=== PATIENT | female | born 1955 | race Caucasian/White ===

== ENCOUNTER 2016-08-07 12:57 | Inpatient (IN) | payer OTHER ==
[~2016-08-07] VITALS: Ht 162.6 cm; Wt 60.0 kg
[2016-08-07 14:13] LABS: EOSINOPHIL (%) 1.4 % (0-5); EOSINOPHIL COUNT 0.2 K/uL (0-0.3); HEMATOCRIT 30.8 % (36.0-46.0); IMMATURE GRANULOCYTE (%) 0.5 % (0.0-0.7); IMMATURE GRANULOCYTE COUNT 0.7 K/uL; LYMPHOCYTE COUNT 1.4 K/uL (1.0-2.8); MCH 26.5 PG (29.0-34.0); MCHC 29.5 G/DL (30.0-36.0); MCV 89.5 FL (83-99); MEAN PLAT.VOLUME 8.7 uM^3 (9.5-12.4); MONOCYTE (%) 5.5 % (3-12); MONOCYTE COUNT 0.9 K/uL (0-0.8); NEUTROPHIL (%) 83.7 % (45-76); PLATELET COUNT 616 K/uL (156-360); RBC DIS.WIDTH-SD 51.4 % (39-53); RED BLOOD COUNT 3.44 M/uL (3.80-5.20); WHITE BLOOD COUNT 15.6 K/uL (4.1-10.2)
[2016-08-07 14:19] LABS: CHLORIDE 107 mEq/L (99-109); POTASSIUM 3.2 mEq/L (3.7-5.4); SODIUM 143 mEq/L (136-147)
[2016-08-07 14:21] LABS: GLUCOSE 96 mg/dL (70-99)
[2016-08-07 14:22] LABS: ANION GAP 10 MEQ/L (2-14)
[2016-08-07 14:25] LABS: GFR ESTIMATE (CALCULATED) > 59 mL/min/; UREA NITROGEN (BUN) 15 mg/dL (9-23)
[2016-08-07 15:46] LABS: TROP-I INTERPRETATION NEGATIVE; TROPONIN-I < 0.01 ng/mL (0.0-0.30)
[2016-08-07] MEDS ORDERED: TRILEPTAL300 MG PO (17:04)
[2016-08-07] MEDS ORDERED: OMEPRAZOLE40 M1 PO (17:04)
[2016-08-07] MEDS ORDERED: ROSUVASTATIN CAL5 MG PO (17:04)
[2016-08-07] MEDS ORDERED: PROAIR HFA8.5 GM IH (17:05)
[2016-08-07] MEDS ORDERED: WELLBUTRIN100 MG PO (17:05)
[2016-08-07] MEDS ORDERED: BUSPAR10 MG PO (17:05)
[2016-08-07] MEDS ORDERED: EXCEDRIN MIGRA1 EAC1 PO (17:06)
[2016-08-07] MEDS ORDERED: ZYRTEC10 M3 PO (17:06)
[2016-08-07] MEDS ORDERED: ALEVE220 MG PO (17:08)
[2016-08-07] MEDS ORDERED: KLONOPIN0.5 M1 PO (17:11)
[2016-08-07 18:35] VITALS: BP 121/63
[2016-08-07 19:22] VITALS: BP 111/58
[2016-08-07 23:37] VITALS: BP 95/52
[2016-08-08 03:48] VITALS: BP 111/68
[2016-08-08 06:55] LABS: HEMATOCRIT 27.6 % (36.0-46.0); MCHC 29.7 G/DL (30.0-36.0); MCV 90.8 FL (83-99); MEAN PLAT.VOLUME 9.2 uM^3 (9.5-12.4); PLATELET COUNT 514 K/uL (156-360); RBC DIS.WIDTH-CV 16.7 % (11.8-14.6); RBC DIS.WIDTH-SD 54.8 % (39-53); RED BLOOD COUNT 3.04 M/uL (3.80-5.20); WHITE BLOOD COUNT 14.7 K/uL (4.1-10.2)
[2016-08-08 07:20] LABS: ANION GAP 8 MEQ/L (2-14); CHLORIDE 107 MEQ/L (99-109); GFR ESTIMATE (CALCULATED) > 59 mL/min/; GLUCOSE 95 mg/dL (70-99); POTASSIUM 3.8 MEQ/L (3.7-5.4); SAMPLE HEMOLYSIS CHECK 0; SAMPLE ICTERIC CHECK 0; SAMPLE LIPEMIA CHECK 0; SODIUM 143 MEQ/L (136-147); UREA NITROGEN (BUN) 12 mg/dL (9-23)
[2016-08-08 08:09] VITALS: BP 133/67
[2016-08-08 11:45] VITALS: BP 108/67
[2016-08-08 15:21] VITALS: BP 107/77
[2016-08-08 19:25] VITALS: BP 118/67
[2016-08-08 21:51] LABS: ADD MIUA? YES; BILIRUBIN NEGATIVE; BLOOD SMALL; COLOR YELLOW ((YELLOW)); GLUCOSE (STRIP) NEGATIVE; KETONES NEGATIVE; LEUKOCYTES NEGATIVE; NITRITE NEGATIVE; PROTEIN (STRIP) NEGATIVE; SPECIFIC GRAVITY 1.017 (1.000-1.030)
[2016-08-08 22:06] LABS: BACTERIA NONE SEEN /HPF; EPITHELIAL CELLS NONE SEEN /HPF; HYALINE CASTS 0-5 /LPF; MUCUS TRACE /LPF; RED BLOOD CELLS 0-5 /HPF (0-5); UCUL ADDED? NO; WHITE BLOOD CELLS 0-5 /HPF (0-5)
[2016-08-08 22:36] VITALS: BP 104/57
[2016-08-09 03:31] VITALS: BP 112/58
[2016-08-09 06:02] LABS: HEMATOCRIT 27.7 % (36.0-46.0); MCH 26.9 PG (29.0-34.0); MCV 89.9 FL (83-99); MEAN PLAT.VOLUME 9.1 uM^3 (9.5-12.4); PLATELET COUNT 477 K/uL (156-360); RBC DIS.WIDTH-CV 16.7 % (11.8-14.6); RBC DIS.WIDTH-SD 54.9 % (39-53); RED BLOOD COUNT 3.08 M/uL (3.80-5.20); WHITE BLOOD COUNT 14.8 K/uL (4.1-10.2)
[2016-08-09 06:26] LABS: ANION GAP 9 MEQ/L (2-14); CHLORIDE 101 MEQ/L (99-109); GFR ESTIMATE (CALCULATED) > 59 mL/min/; GLUCOSE 103 mg/dL (70-99); POTASSIUM 3.4 MEQ/L (3.7-5.4); SAMPLE HEMOLYSIS CHECK 0; SAMPLE ICTERIC CHECK 0; SAMPLE LIPEMIA CHECK 0; SODIUM 137 MEQ/L (136-147); UREA NITROGEN (BUN) 12 mg/dL (9-23)
[2016-08-09 06:30] LABS: EOSINOPHIL (%) 0.7 % (0-5); EOSINOPHIL COUNT 0.1 K/uL (0-0.3); IMMATURE GRANULOCYTE (%) 0.6 % (0.0-0.7); IMMATURE GRANULOCYTE COUNT 0.1 K/uL; LYMPHOCYTE COUNT 0.7 K/uL (1.0-2.8); MONOCYTE (%) 5.7 % (3-12); MONOCYTE COUNT 0.9 K/uL (0-0.8)
[2016-08-09 07:25] VITALS: BP 115/68
[2016-08-09 08:08] LABS: INTER. NORMALIZED RATIO 1.2; PROTHROMBIN TIME 12.4 (9.2-11.2)
[2016-08-09 11:40] VITALS: BP 121/64
[2016-08-09 13:23] LABS: ALKALINE PHOSPHATASE 317 IU/L (3-129); DIRECT BILIRUBIN 0.2 mg/dL (0.0-0.3); TOTAL BILIRUBIN 0.6 MG/DL (0.0-1.0)
[2016-08-09 16:51] VITALS: BP 91/58
[2016-08-09 18:58] VITALS: BP 105/57
[2016-08-09 23:00] VITALS: BP 101/59
[2016-08-10 02:37] VITALS: BP 99/59
[2016-08-10 08:00] VITALS: BP 103/65
[2016-08-10 12:25] VITALS: BP 114/59
[2016-08-10 16:37] VITALS: BP 114/57
[2016-08-10 19:14] VITALS: BP 103/55
[2016-08-10 23:25] VITALS: BP 100/65
[2016-08-11 06:44] VITALS: BP 108/62
[2016-08-11 11:05] VITALS: BP 98/56
[2016-08-11 13:47] LABS: HEMATOCRIT 27.1 % (36.0-46.0); MCH 27.1 PG (29.0-34.0); MCHC 30.3 G/DL (30.0-36.0); MCV 89.4 FL (83-99); MEAN PLAT.VOLUME 9.4 uM^3 (9.5-12.4); PLATELET COUNT 479 K/uL (156-360); RBC DIS.WIDTH-CV 16.7 % (11.8-14.6); RBC DIS.WIDTH-SD 54.6 % (39-53); RED BLOOD COUNT 3.03 M/uL (3.80-5.20); WHITE BLOOD COUNT 16.3 K/uL (4.1-10.2)
[2016-08-11 13:56] LABS: ANION GAP 11 MEQ/L (2-14); CHLORIDE 102 MEQ/L (99-109); GFR ESTIMATE (CALCULATED) > 59 mL/min/; GLUCOSE 129 mg/dL (70-99); POTASSIUM 3.7 MEQ/L (3.7-5.4); SAMPLE HEMOLYSIS CHECK 0; SAMPLE ICTERIC CHECK 0; SAMPLE LIPEMIA CHECK 0; SODIUM 139 MEQ/L (136-147); UREA NITROGEN (BUN) 11 mg/dL (9-23)
[2016-08-11 13:59] LABS: EOSINOPHIL (%) 0.9 % (0-5); EOSINOPHIL COUNT 0.1 K/uL (0-0.3); IMMATURE GRANULOCYTE (%) 0.7 % (0.0-0.7); IMMATURE GRANULOCYTE COUNT 0.1 K/uL; LYMPHOCYTE COUNT 1.3 K/uL (1.0-2.8); MONOCYTE COUNT 0.8 K/uL (0-0.8); NEUTROPHIL (%) 85.1 % (45-76); NEUTROPHIL COUNT 13.9 K/uL (1.8-6.4)
[2016-08-11 14:54] LABS: HEMATOLOGY COMMENT 1 SMEAR COMPATIBLE; USER ID SS
[2016-08-11 15:44] VITALS: BP 113/66
[2016-08-11 19:05] VITALS: BP 103/59
[2016-08-11 23:55] VITALS: BP 90/52
[2016-08-12] VITALS (7 sets, daily range): BP systolic 88–110; BP diastolic 47–65
[2016-08-12] MEDS ORDERED: ADVAIR HFA120 INHALA IH (09:01)
[2016-08-12] MEDS ORDERED: BENZONATATE100 MG PO (09:01)
[2016-08-12] MEDS ORDERED: CEFDINIR300 MG PO (09:04)
[2016-08-12] MEDS ORDERED: SPIRIVA RESPIMAT4 GM IH (09:04)
[2016-08-12] MEDS ORDERED: PROVENTIL,2.5 MG/3 M IH (09:05)
[2016-08-12] MEDS ORDERED: ENDOCET 5-3251 EACH PO (09:05)
[2016-08-12 14:46] LABS: BASOPHIL COUNT 0.1 K/uL (0-0.1); EOSINOPHIL (%) 0.5 % (0-5); EOSINOPHIL COUNT 0.1 K/uL (0-0.3); HEMATOCRIT 26.8 % (36.0-46.0); IMMATURE GRANULOCYTE (%) 1.5 % (0.0-0.7); IMMATURE GRANULOCYTE COUNT 0.3 K/uL; INSTRUMENT ABS NEUTROPHIL CT 16.8 K/uL; MCH 25.9 PG (29.0-34.0); MCHC 29.1 G/DL (30.0-36.0); MEAN PLAT.VOLUME 9.2 uM^3 (9.5-12.4); MONOCYTE (%) 6.4 % (3-12); MONOCYTE COUNT 1.2 K/uL (0-0.8); NEUTROPHIL (%) 86.2 % (45-76); NEUTROPHIL COUNT 16.8 K/uL (1.8-6.4); PLATELET COUNT 534 K/uL (156-360); RBC DIS.WIDTH-CV 16.6 % (11.8-14.6); RBC DIS.WIDTH-SD 54.3 % (39-53); RED BLOOD COUNT 3.01 M/uL (3.80-5.20); WHITE BLOOD COUNT 19.5 K/uL (4.1-10.2)
[2016-08-12 15:07] LABS: ALKALINE PHOSPHATASE 325 IU/L (3-129); ANION GAP 10 MEQ/L (2-14); CHLORIDE 101 MEQ/L (99-109); GFR ESTIMATE (CALCULATED) > 59 mL/min/; GLUCOSE 108 mg/dL (70-99); POTASSIUM 3.7 MEQ/L (3.7-5.4); SAMPLE HEMOLYSIS CHECK 0; SAMPLE ICTERIC CHECK 0; SAMPLE LIPEMIA CHECK 0; SODIUM 136 MEQ/L (136-147); UREA NITROGEN (BUN) 15 mg/dL (9-23)
[2016-08-12 15:08] LABS: TOTAL BILIRUBIN 0.4 MG/DL (0.0-1.0)
[2016-08-13 03:13] VITALS: BP 107/67
[2016-08-13 06:48] VITALS: BP 64/52
[2016-08-13 10:15] VITALS: BP 120/52
[2016-08-13 15:44] VITALS: BP 110/76
[2016-08-13 19:23] VITALS: BP 110/65
[2016-08-13 23:29] VITALS: BP 106/71
[2016-08-14] VITALS (7 sets, daily range): BP systolic 92–126; BP diastolic 51–63
[2016-08-15 04:50] VITALS: BP 103/60
[2016-08-15 08:14] VITALS: BP 97/54
[2016-08-15 14:00] VITALS: BP 104/55
[2016-08-15 16:00] VITALS: BP 120/59
[2016-08-15 19:27] VITALS: BP 104/50
[2016-08-15 23:17] VITALS: BP 117/58
[2016-08-16 02:51] VITALS: BP 88/50
[2016-08-16 06:49] LABS: BASOPHIL COUNT 0.1 K/uL (0-0.1); EOSINOPHIL (%) 0.8 % (0-5); EOSINOPHIL COUNT 0.2 K/uL (0-0.3); HEMATOCRIT 25.6 % (36.0-46.0); IMMATURE GRANULOCYTE (%) 2.4 % (0.0-0.7); IMMATURE GRANULOCYTE COUNT 0.5 K/uL; INSTRUMENT ABS NEUTROPHIL CT 17.1 K/uL; LYMPHOCYTE COUNT 2.2 K/uL (1.0-2.8); MCH 26.5 PG (29.0-34.0); MCHC 29.3 G/DL (30.0-36.0); MCV 90.5 FL (83-99); MEAN PLAT.VOLUME 9.5 uM^3 (9.5-12.4); MONOCYTE (%) 5.4 % (3-12); MONOCYTE COUNT 1.2 K/uL (0-0.8); NEUTROPHIL (%) 80.7 % (45-76); NEUTROPHIL COUNT 17.1 K/uL (1.8-6.4); PLATELET COUNT 520 K/uL (156-360); RBC DIS.WIDTH-CV 16.7 % (11.8-14.6); RBC DIS.WIDTH-SD 54.5 % (39-53); RED BLOOD COUNT 2.83 M/uL (3.80-5.20); WHITE BLOOD COUNT 21.2 K/uL (4.1-10.2)
[2016-08-16 07:15] VITALS: BP 108/64
[2016-08-16 07:25] LABS: ANION GAP 10 MEQ/L (2-14); CHLORIDE 101 MEQ/L (99-109); GFR ESTIMATE (CALCULATED) > 59 mL/min/; GLUCOSE 71 mg/dL (70-99); SAMPLE HEMOLYSIS CHECK 0; SAMPLE ICTERIC CHECK 0; SAMPLE LIPEMIA CHECK 0; SODIUM 138 MEQ/L (136-147); UREA NITROGEN (BUN) 15 mg/dL (9-23)
[2016-08-16 10:15] VITALS: BP 108/60
[2016-08-16 15:15] VITALS: BP 89/51
[2016-08-16 18:58] VITALS: BP 108/68
[2016-08-16 23:12] VITALS: BP 110/58
[2016-08-17 03:22] VITALS: BP 135/68
[2016-08-17 08:30] VITALS: BP 96/61
[2016-08-17 16:17] VITALS: BP 107/60
[2016-08-17 23:34] VITALS: BP 108/54
[2016-08-18 03:14] VITALS: BP 109/55
[2016-08-18 07:31] VITALS: BP 110/59
[2016-08-18 11:55] VITALS: BP 110/56
[2016-08-18] MEDS ORDERED: CLARITIN,ALAVAR10 MG PO (15:17)
[2016-08-18] MEDS ORDERED: PANTOPRAZOLE SO40 MG PO (15:27)
== END 2016-08-18 13:27 | DRG 180 ==
LOC: EME 12:57 → 5EAST 16:31 → EDOF 16:31 → 5EAST 17:49
PROVIDERS: Emergency Medicine; Hospitalist; Internal Medicine; Physician Assistant; Radiology Diagnostic Radiology
PROC: 0BBJ3ZX Excision of Left Lower Lung Lobe, Percutaneous Approach, Diagnostic (ICD-10-PCS; principal; 2016-08-09)
DX: C34.32 Malignant neoplasm of lower lobe, left bronchus or lung (principal); J18.9 Pneumonia, unspecified organism; J44.1 Chronic obstructive pulmonary disease with (acute) exacerbation; F33.9 Major depressive disorder, recurrent, unspecified; R04.2 Hemoptysis; E87.6 Hypokalemia; R63.4 Abnormal weight loss; I11.9 Hypertensive heart disease without heart failure; D47.3 Essential (hemorrhagic) thrombocythemia; R59.1 Generalized enlarged lymph nodes; G89.3 Neoplasm related pain (acute) (chronic); I95.9 Hypotension, unspecified; R93.1 Abnormal findings on diagnostic imaging of heart and coronary circulation; E78.5 Hyperlipidemia, unspecified; I34.1 Nonrheumatic mitral (valve) prolapse; R13.10 Dysphagia, unspecified; G43.909 Migraine, unspecified, not intractable, without status migrainosus; D63.0 Anemia in neoplastic disease; F41.9 Anxiety disorder, unspecified; R00.0 Tachycardia, unspecified; Z60.2 Problems related to living alone; Z87.891 Personal history of nicotine dependence; Z80.0 Family history of malignant neoplasm of digestive organs; Z83.3 Family history of diabetes mellitus; Z81.1 Family history of alcohol abuse and dependence
CPT/HCPCS: 70553; 71020; 71250; 74177; 74230; 77012; 80048; 80053; 80076; 81003; 82272; 83605; 84439; 84443; 84481; 84484; 85025; 85027; 85610; 85730; 86376; 86800 90; 87040; 88305; 88341 TC; 88342 TC; 92611 GN; 93005; 93306; 93312; 93970; 94060; 94640; 94640 76; 94726; 94729; 94760; 94799; 97530 GO; 99202; 99281; 99284; G0008; J0696; J1650; J2250; J2405; J3010; J7040; J7050

== ENCOUNTER 2016-08-18 12:32 | Inpatient (IN) | payer OTHER ==
[~2016-08-18] VITALS: Ht 162.6 cm; Wt 56.1 kg
[~2016-08-18 12:32] MED LIST: ADVAIR HFA120 INHALA IH; ALEVE220 MG PO; BENZONATATE100 MG PO; BUSPAR10 MG PO; CEFDINIR300 MG PO; ENDOCET 5-3251 EACH PO; EXCEDRIN MIGRA1 EAC1 PO; KLONOPIN0.5 M1 PO; OMEPRAZOLE40 M1 PO; PROAIR HFA8.5 GM IH; PROVENTIL,2.5 MG/3 M IH; ROSUVASTATIN CAL5 MG PO; SPIRIVA RESPIMAT4 GM IH; TRILEPTAL300 MG PO; WELLBUTRIN100 MG PO; ZYRTEC10 M3 PO
[2016-08-18 14:00] VITALS: BP 109/56
[2016-08-18] MEDS ORDERED: CLARITIN,ALAVAR10 MG PO (15:17)
[2016-08-18] MEDS ORDERED: PANTOPRAZOLE SO40 MG PO (15:27)
[2016-08-18 23:39] VITALS: BP 100/49
[2016-08-19 05:26] VITALS: BP 104/60
[2016-08-19 05:41] LABS: HEMATOCRIT 24.3 % (36.0-46.0); MCH 26.5 PG (29.0-34.0); MCHC 29.2 G/DL (30.0-36.0); MCV 90.7 FL (83-99); MEAN PLAT.VOLUME 9.2 uM^3 (9.5-12.4); PLATELET COUNT 541 K/uL (156-360); RBC DIS.WIDTH-CV 17.1 % (11.8-14.6); RBC DIS.WIDTH-SD 54.9 % (39-53); RED BLOOD COUNT 2.68 M/uL (3.80-5.20); WHITE BLOOD COUNT 19.9 K/uL (4.1-10.2)
[2016-08-19 06:39] LABS: ALKALINE PHOSPHATASE 274 IU/L (3-129); ANION GAP 9 MEQ/L (2-14); CHLORIDE 99 MEQ/L (99-109); GFR ESTIMATE (CALCULATED) > 59 mL/min/; GLUCOSE 91 mg/dL (70-99); POTASSIUM 3.7 MEQ/L (3.7-5.4); SAMPLE HEMOLYSIS CHECK 0; SAMPLE ICTERIC CHECK 0; SAMPLE LIPEMIA CHECK 0; SODIUM 134 MEQ/L (136-147); TOTAL BILIRUBIN 0.4 MG/DL (0.0-1.0); UREA NITROGEN (BUN) 12 mg/dL (9-23)
[2016-08-19 15:19] VITALS: BP 118/59
[2016-08-20 05:38] VITALS: BP 106/56
[2016-08-20 08:45] LABS: BASOPHIL COUNT 0.1 K/uL (0-0.1); EOSINOPHIL (%) 0.7 % (0-5); EOSINOPHIL COUNT 0.1 K/uL (0-0.3); HEMATOCRIT 25.5 % (36.0-46.0); IMMATURE GRANULOCYTE (%) 1.4 % (0.0-0.7); IMMATURE GRANULOCYTE COUNT 0.3 K/uL; INSTRUMENT ABS NEUTROPHIL CT 16.2 K/uL; LYMPHOCYTE COUNT 1.7 K/uL (1.0-2.8); MCH 26.3 PG (29.0-34.0); MCV 90.7 FL (83-99); MEAN PLAT.VOLUME 9.2 uM^3 (9.5-12.4); MONOCYTE (%) 5.6 % (3-12); MONOCYTE COUNT 1.1 K/uL (0-0.8); NEUTROPHIL (%) 83.3 % (45-76); NEUTROPHIL COUNT 16.2 K/uL (1.8-6.4); PLATELET COUNT 543 K/uL (156-360); RBC DIS.WIDTH-CV 17.2 % (11.8-14.6); RBC DIS.WIDTH-SD 56.9 % (39-53); RED BLOOD COUNT 2.81 M/uL (3.80-5.20); WHITE BLOOD COUNT 19.4 K/uL (4.1-10.2)
[2016-08-20 15:28] VITALS: BP 102/61
[2016-08-20 20:57] LABS: ADD MIUA? NO; BILIRUBIN NEGATIVE; BLOOD NEGATIVE; COLOR YELLOW ((YELLOW)); GLUCOSE (STRIP) NEGATIVE; KETONES NEGATIVE; LEUKOCYTES NEGATIVE; NITRITE NEGATIVE; PROTEIN (STRIP) NEGATIVE; SPECIFIC GRAVITY 1.025 (1.000-1.030); UCUL ADDED? NO
[2016-08-21 04:49] VITALS: BP 103/56
[2016-08-21 16:01] VITALS: BP 100/55
[2016-08-22 05:13] VITALS: BP 102/57
[2016-08-22 05:26] LABS: BASOPHIL COUNT 0.1 K/uL (0-0.1); EOSINOPHIL (%) 0.7 % (0-5); EOSINOPHIL COUNT 0.1 K/uL (0-0.3); IMMATURE GRANULOCYTE (%) 1.3 % (0.0-0.7); IMMATURE GRANULOCYTE COUNT 0.2 K/uL; INSTRUMENT ABS NEUTROPHIL CT 15.7 K/uL; LYMPHOCYTE COUNT 1.7 K/uL (1.0-2.8); MCH 26.8 PG (29.0-34.0); MCHC 28.8 G/DL (30.0-36.0); MCV 92.9 FL (83-99); MEAN PLAT.VOLUME 9.2 uM^3 (9.5-12.4); MONOCYTE (%) 6.7 % (3-12); MONOCYTE COUNT 1.3 K/uL (0-0.8); NEUTROPHIL (%) 81.9 % (45-76); NEUTROPHIL COUNT 15.7 K/uL (1.8-6.4); PLATELET COUNT 558 K/uL (156-360); RBC DIS.WIDTH-CV 17.3 % (11.8-14.6); RBC DIS.WIDTH-SD 58.1 % (39-53); RED BLOOD COUNT 2.69 M/uL (3.80-5.20); WHITE BLOOD COUNT 19.2 K/uL (4.1-10.2)
[2016-08-22 15:13] VITALS: BP 98/54
[2016-08-23] VITALS (8 sets, daily range): BP systolic 91–108; BP diastolic 47–56
[2016-08-23 21:42] LABS: HEMATOCRIT 29.4 % (36.0-46.0); MCHC 30.3 G/DL (30.0-36.0); MCV 89.1 FL (83-99); PLATELET COUNT 519 K/uL (156-360); RBC DIS.WIDTH-CV 16.6 % (11.8-14.6); RBC DIS.WIDTH-SD 53.4 % (39-53); WHITE BLOOD COUNT 18.3 K/uL (4.1-10.2)
[2016-08-24 05:33] VITALS: BP 97/54
[2016-08-24 05:55] LABS: BASOPHIL COUNT 0.1 K/uL (0-0.1); EOSINOPHIL (%) 0.9 % (0-5); EOSINOPHIL COUNT 0.2 K/uL (0-0.3); HEMATOCRIT 29.7 % (36.0-46.0); IMMATURE GRANULOCYTE (%) 1.3 % (0.0-0.7); IMMATURE GRANULOCYTE COUNT 0.3 K/uL; INSTRUMENT ABS NEUTROPHIL CT 16.4 K/uL; LYMPHOCYTE COUNT 1.5 K/uL (1.0-2.8); MCH 26.9 PG (29.0-34.0); MCHC 30.3 G/DL (30.0-36.0); MCV 88.7 FL (83-99); MEAN PLAT.VOLUME 9.2 uM^3 (9.5-12.4); MONOCYTE (%) 5.7 % (3-12); MONOCYTE COUNT 1.1 K/uL (0-0.8); NEUTROPHIL (%) 83.8 % (45-76); NEUTROPHIL COUNT 16.4 K/uL (1.8-6.4); PLATELET COUNT 530 K/uL (156-360); RBC DIS.WIDTH-CV 16.8 % (11.8-14.6); RBC DIS.WIDTH-SD 53.9 % (39-53); RED BLOOD COUNT 3.35 M/uL (3.80-5.20); WHITE BLOOD COUNT 19.5 K/uL (4.1-10.2)
[2016-08-24 16:00] VITALS: BP 108/57
[2016-08-25 05:10] VITALS: BP 109/53
[2016-08-25 15:12] VITALS: BP 115/56
[2016-08-26 05:41] VITALS: BP 109/58
[2016-08-26 07:44] VITALS: BP 102/60
[2016-08-26 15:30] VITALS: BP 122/64
[2016-08-26 16:31] LABS: ADD MIUA? YES; BILIRUBIN NEGATIVE; BLOOD NEGATIVE; COLOR YELLOW ((YELLOW)); GLUCOSE (STRIP) NEGATIVE; KETONES NEGATIVE; LEUKOCYTES NEGATIVE; NITRITE NEGATIVE; PROTEIN (STRIP) NEGATIVE; SPECIFIC GRAVITY 1.025 (1.000-1.030)
[2016-08-26 17:17] LABS: RED BLOOD CELLS RARE /HPF (0-5)
[2016-08-26 17:18] LABS: AMORPHOUS URATES CRYSTALS 4+; BACTERIA RARE /HPF; CALCIUM OXALATE CRYSTALS 1+ /HPF; CASTS NONE SEEN /LPF; CRYSTALS PRESENT; EPITHELIAL CELLS 1+ /HPF; MUCUS NONE SEEN /LPF
[2016-08-27 06:12] VITALS: BP 103/54
[2016-08-27 07:30] VITALS: BP 100/66
[2016-08-27 15:19] VITALS: BP 102/59
[2016-08-28 05:39] VITALS: BP 112/62
[2016-08-28 15:17] VITALS: BP 96/59
[2016-08-29 05:30] VITALS: BP 120/57
[2016-08-29 15:33] VITALS: BP 107/62
[2016-08-30 05:58] LABS: BASOPHIL COUNT 0.1 K/uL (0-0.1); EOSINOPHIL (%) 0.5 % (0-5); EOSINOPHIL COUNT 0.1 K/uL (0-0.3); HEMATOCRIT 33.1 % (36.0-46.0); IMMATURE GRANULOCYTE (%) 0.9 % (0.0-0.7); IMMATURE GRANULOCYTE COUNT 0.2 K/uL; INSTRUMENT ABS NEUTROPHIL CT 14.5 K/uL; LYMPHOCYTE COUNT 1.7 K/uL (1.0-2.8); MCH 27.8 PG (29.0-34.0); MCHC 30.2 G/DL (30.0-36.0); MCV 91.9 FL (83-99); MEAN PLAT.VOLUME 9.1 uM^3 (9.5-12.4); MONOCYTE (%) 5.3 % (3-12); MONOCYTE COUNT 0.9 K/uL (0-0.8); NEUTROPHIL (%) 83.4 % (45-76); NEUTROPHIL COUNT 14.5 K/uL (1.8-6.4); PLATELET COUNT 536 K/uL (156-360); RBC DIS.WIDTH-CV 16.8 % (11.8-14.6); RBC DIS.WIDTH-SD 55.9 % (39-53); WHITE BLOOD COUNT 17.4 K/uL (4.1-10.2)
[2016-08-30 06:03] VITALS: BP 118/55
[2016-08-30 06:23] LABS: ALKALINE PHOSPHATASE 317 IU/L (3-129); ANION GAP 9 MEQ/L (2-14); CHLORIDE 103 MEQ/L (99-109); GFR ESTIMATE (CALCULATED) > 59 mL/min/; GLUCOSE 92 mg/dL (70-99); SAMPLE HEMOLYSIS CHECK 0; SAMPLE ICTERIC CHECK 0; SAMPLE LIPEMIA CHECK 0; SODIUM 141 MEQ/L (136-147); TOTAL BILIRUBIN 0.3 MG/DL (0.0-1.0); UREA NITROGEN (BUN) 11 mg/dL (9-23)
[2016-08-30 15:55] VITALS: BP 101/57
[2016-08-31 05:27] VITALS: BP 115/58
[2016-08-31 16:10] VITALS: BP 94/57
[2016-08-31] MEDS ORDERED: BUTALB-APAP-CA1 EACH PO (17:36)
[2016-08-31] MEDS ORDERED: LEVOFLOXACIN500 MG PO (17:36)
[2016-08-31] MEDS ORDERED: THERAGRAN1 TABLET PO (17:36)
[2016-08-31] MEDS ORDERED: SENNA PLUS TAB1 EACH PO (17:36)
[2016-08-31] MEDS ORDERED: TYLENOL REGULA325 MG PO (17:36)
[2016-08-31] MEDS ORDERED: PREDNISONE10 MG PO (17:36)
[2016-08-31] MEDS ORDERED: GUAIFENESI100 MG/5 M PO (17:36)
[2016-08-31] MEDS ORDERED: SPIRIVA RESPIMAT4 GM IH (17:36)
[2016-08-31] MEDS ORDERED: KLONOPIN0.5 M1 PO (17:36)
[2016-08-31] MEDS ORDERED: Vitamin B-12 PO (17:36)
[2016-08-31] MEDS ORDERED: FERROUS SULFAT325 MG PO (17:36)
[2016-08-31] MEDS ORDERED: PROAIR HFA8.5 GM IH (17:36)
[2016-08-31] MEDS ORDERED: GABAPENTIN300 MG PO (17:40)
[2016-09-01 05:28] VITALS: BP 94/57
== END 2016-09-01 14:00 | disposition home health service (06) | DRG 945 ==
LOC: 3WEST 12:32
PROVIDERS: Internal Medicine Hematology & Oncology; Internal Medicine Medical Oncology; Physical Medicine & Rehabilitation Pain Medicine; Psychiatry & Neurology Neurology
PROC: F07M0ZZ Range of Motion and Joint Mobility Treatment of Musculoskeletal System - Whole Body (ICD-10-PCS; principal; 2016-08-18)
PROC: 30233N1 Transfusion of Nonautologous Red Blood Cells into Peripheral Vein, Percutaneous Approach (ICD-10-PCS; 2016-08-23)
DX: R53.1 Weakness (principal); R13.10 Dysphagia, unspecified; R63.4 Abnormal weight loss; R11.2 Nausea with vomiting, unspecified; C34.32 Malignant neoplasm of lower lobe, left bronchus or lung; J44.0 Chronic obstructive pulmonary disease with (acute) lower respiratory infection; J18.8 Other pneumonia, unspecified organism; J44.1 Chronic obstructive pulmonary disease with (acute) exacerbation; D63.0 Anemia in neoplastic disease; R00.0 Tachycardia, unspecified; I10 Essential (primary) hypertension; E78.5 Hyperlipidemia, unspecified; G43.909 Migraine, unspecified, not intractable, without status migrainosus; F31.9 Bipolar disorder, unspecified; F41.9 Anxiety disorder, unspecified; E83.51 Hypocalcemia; E88.09 Other disorders of plasma-protein metabolism, not elsewhere classified; R74.8 Abnormal levels of other serum enzymes; K59.00 Constipation, unspecified; I34.1 Nonrheumatic mitral (valve) prolapse; R50.82 Postprocedural fever; D75.89 Other specified diseases of blood and blood-forming organs; R07.9 Chest pain, unspecified; G40.909 Epilepsy, unspecified, not intractable, without status epilepticus; Z87.891 Personal history of nicotine dependence; Z60.2 Problems related to living alone
CPT/HCPCS: 71010; 80053; 81003; 85025; 85027; 86850; 86900; 86901; 86920; 87070; 87086; 87205; 94640; 94640 76; 94799; 97110 GO; 97530 GP; J1650; J7512; P9016; Q0169

== ENCOUNTER 2016-09-09 10:56 | Inpatient (IN) | payer OTHER ==
[~2016-09-09] VITALS: Ht 162.6 cm; Wt 43.6 kg
[~2016-09-09 10:56] MED LIST changes: +BUTALB-APAP-CA1 EACH PO; +CLARITIN,ALAVAR10 MG PO; +FERROUS SULFAT325 MG PO; +GABAPENTIN300 MG PO; +GUAIFENESI100 MG/5 M PO; +LEVOFLOXACIN500 MG PO; +PANTOPRAZOLE SO40 MG PO; +PREDNISONE10 MG PO; +SENNA PLUS TAB1 EACH PO; +THERAGRAN1 TABLET PO; +TYLENOL REGULA325 MG PO; +Vitamin B-12 PO
[2016-09-09 11:53] LABS: HEMATOCRIT 38.6 % (36.0-46.0); MCHC 30.1 G/DL (30.0-36.0); PLATELET COUNT 456 K/uL (156-360); RBC DIS.WIDTH-CV 15.9 % (11.8-14.6); RBC DIS.WIDTH-SD 54.4 % (39-53); RED BLOOD COUNT 4.15 M/uL (3.80-5.20)
[2016-09-09 12:06] LABS: CHLORIDE 105 mEq/L (99-109); SODIUM 140 mEq/L (136-147)
[2016-09-09 12:07] LABS: GLUCOSE 104 mg/dL (70-99)
[2016-09-09 12:09] LABS: ANION GAP 11 MEQ/L (2-14)
[2016-09-09 12:13] LABS: GFR ESTIMATE (CALCULATED) > 59 mL/min/; UREA NITROGEN (BUN) 11 mg/dL (9-23)
[2016-09-09 12:15] LABS: TROP-I INTERPRETATION NEGATIVE; TROPONIN-I < 0.01 ng/mL (0.0-0.30)
[2016-09-09 15:34] LABS: BASOPHIL COUNT 0.1 K/uL (0-0.1); EOSINOPHIL (%) 0.4 % (0-5); EOSINOPHIL COUNT 0.1 K/uL (0-0.3); IMMATURE GRANULOCYTE (%) 1.3 % (0.0-0.7); IMMATURE GRANULOCYTE COUNT 0.3 K/uL; INSTRUMENT ABS NEUTROPHIL CT 17.6 K/uL; LYMPHOCYTE COUNT 1.2 K/uL (1.0-2.8); MONOCYTE (%) 4.9 % (3-12); NEUTROPHIL (%) 87.1 % (45-76); NEUTROPHIL COUNT 17.6 K/uL (1.8-6.4)
[2016-09-09] MEDS ORDERED: CENTRUM SILVER1 EAC3 PO (18:58)
[2016-09-10 00:01] VITALS: BP 117/68
[2016-09-10 04:00] VITALS: BP 92/50
[2016-09-10 07:16] VITALS: BP 106/74
[2016-09-10 07:35] LABS: HEMATOCRIT 32.4 % (36.0-46.0); MCH 27.9 PG (29.0-34.0); MCHC 30.6 G/DL (30.0-36.0); MCV 91.3 FL (83-99); MEAN PLAT.VOLUME 8.8 uM^3 (9.5-12.4); PLATELET COUNT 427 K/uL (156-360); RBC DIS.WIDTH-CV 15.5 % (11.8-14.6); RBC DIS.WIDTH-SD 52.5 % (39-53); RED BLOOD COUNT 3.55 M/uL (3.80-5.20); WHITE BLOOD COUNT 21.4 K/uL (4.1-10.2)
[2016-09-10 07:59] LABS: ANION GAP 10 MEQ/L (2-14); CHLORIDE 106 MEQ/L (99-109); GFR ESTIMATE (CALCULATED) > 59 mL/min/; GLUCOSE 94 mg/dL (70-99); POTASSIUM 3.7 MEQ/L (3.7-5.4); SAMPLE HEMOLYSIS CHECK 0; SAMPLE ICTERIC CHECK 0; SAMPLE LIPEMIA CHECK 0; SODIUM 143 MEQ/L (136-147); UREA NITROGEN (BUN) 16 mg/dL (9-23)
[2016-09-10 12:07] VITALS: BP 112/67
[2016-09-10] MEDS ORDERED: VITAMIN B-12500 MC5 PO (13:30)
[2016-09-10 16:25] VITALS: BP 110/74
[2016-09-10 20:00] VITALS: BP 94/58
[2016-09-11 00:02] VITALS: BP 91/53
[2016-09-11 04:42] VITALS: BP 111/63
[2016-09-11 07:02] LABS: HEMATOCRIT 32.6 % (36.0-46.0); MCH 27.2 PG (29.0-34.0); MCHC 29.8 G/DL (30.0-36.0); MCV 91.6 FL (83-99); MEAN PLAT.VOLUME 8.9 uM^3 (9.5-12.4); PLATELET COUNT 432 K/uL (156-360); RBC DIS.WIDTH-CV 15.9 % (11.8-14.6); RBC DIS.WIDTH-SD 53.1 % (39-53); RED BLOOD COUNT 3.56 M/uL (3.80-5.20); WHITE BLOOD COUNT 16.4 K/uL (4.1-10.2)
[2016-09-11 08:09] VITALS: BP 106/69
[2016-09-11 11:32] VITALS: BP 104/63
[2016-09-11 16:22] VITALS: BP 105/68
[2016-09-11 20:00] VITALS: BP 112/65
[2016-09-12 00:05] VITALS: BP 109/65
[2016-09-12 04:30] VITALS: BP 122/72
[2016-09-12 07:10] LABS: BASOPHIL COUNT 0.1 K/uL (0-0.1); EOSINOPHIL (%) 0.6 % (0-5); EOSINOPHIL COUNT 0.1 K/uL (0-0.3); HEMATOCRIT 36.9 % (36.0-46.0); IMMATURE GRANULOCYTE (%) 1.4 % (0.0-0.7); IMMATURE GRANULOCYTE COUNT 0.2 K/uL; INSTRUMENT ABS NEUTROPHIL CT 12.3 K/uL; LYMPHOCYTE COUNT 2.5 K/uL (1.0-2.8); MCH 27.6 PG (29.0-34.0); MCHC 29.8 G/DL (30.0-36.0); MCV 92.5 FL (83-99); MEAN PLAT.VOLUME 8.6 uM^3 (9.5-12.4); MONOCYTE (%) 6.5 % (3-12); MONOCYTE COUNT 1.1 K/uL (0-0.8); NEUTROPHIL (%) 75.9 % (45-76); NEUTROPHIL COUNT 12.3 K/uL (1.8-6.4); PLATELET COUNT 459 K/uL (156-360); RBC DIS.WIDTH-SD 54.9 % (39-53); RED BLOOD COUNT 3.99 M/uL (3.80-5.20); WHITE BLOOD COUNT 16.2 K/uL (4.1-10.2)
[2016-09-12 07:31] LABS: ANION GAP 7 MEQ/L (2-14); CHLORIDE 103 MEQ/L (99-109); GFR ESTIMATE (CALCULATED) > 59 mL/min/; GLUCOSE 83 mg/dL (70-99); POTASSIUM 3.9 MEQ/L (3.7-5.4); SAMPLE HEMOLYSIS CHECK 0; SAMPLE ICTERIC CHECK 0; SAMPLE LIPEMIA CHECK 0; SODIUM 142 MEQ/L (136-147); UREA NITROGEN (BUN) 18 mg/dL (9-23)
[2016-09-12 08:44] VITALS: BP 115/75
[2016-09-12 15:56] VITALS: BP 116/74
[2016-09-13 01:03] VITALS: BP 93/53
[2016-09-13 07:24] LABS: BASOPHIL COUNT 0.1 K/uL (0-0.1); EOSINOPHIL (%) 0.5 % (0-5); EOSINOPHIL COUNT 0.1 K/uL (0-0.3); HEMATOCRIT 35.2 % (36.0-46.0); IMMATURE GRANULOCYTE (%) 2.1 % (0.0-0.7); IMMATURE GRANULOCYTE COUNT 0.4 K/uL; INSTRUMENT ABS NEUTROPHIL CT 13.4 K/uL; LYMPHOCYTE COUNT 2.1 K/uL (1.0-2.8); MCH 27.2 PG (29.0-34.0); MCHC 29.3 G/DL (30.0-36.0); MCV 93.1 FL (83-99); MEAN PLAT.VOLUME 8.6 uM^3 (9.5-12.4); MONOCYTE (%) 5.9 % (3-12); NEUTROPHIL (%) 78.8 % (45-76); NEUTROPHIL COUNT 13.4 K/uL (1.8-6.4); PLATELET COUNT 454 K/uL (156-360); RBC DIS.WIDTH-CV 16.2 % (11.8-14.6); RBC DIS.WIDTH-SD 54.9 % (39-53); RED BLOOD COUNT 3.78 M/uL (3.80-5.20)
[2016-09-13 07:42] LABS: ANION GAP 9 MEQ/L (2-14); CHLORIDE 103 MEQ/L (99-109); GFR ESTIMATE (CALCULATED) > 59 mL/min/; GLUCOSE 75 mg/dL (70-99); POTASSIUM 4.4 MEQ/L (3.7-5.4); SAMPLE HEMOLYSIS CHECK 0; SAMPLE ICTERIC CHECK 0; SAMPLE LIPEMIA CHECK 0; SODIUM 144 MEQ/L (136-147); UREA NITROGEN (BUN) 18 mg/dL (9-23)
[2016-09-13 08:53] VITALS: BP 117/67
[2016-09-13 12:38] VITALS: BP 119/62
[2016-09-13 15:40] VITALS: BP 160/74
[2016-09-13 16:05] VITALS: BP 102/61
[2016-09-13 23:20] VITALS: BP 99/64
[2016-09-14 07:57] VITALS: BP 118/61
[2016-09-14 16:03] VITALS: BP 103/59
[2016-09-15 00:41] VITALS: BP 101/65
[2016-09-15 08:08] VITALS: BP 111/67
[2016-09-15 16:04] VITALS: BP 99/62
[2016-09-16 00:20] VITALS: BP 113/74
[2016-09-16 08:17] VITALS: BP 108/68
[2016-09-16 08:31] LABS: ANION GAP 9 MEQ/L (2-14); CHLORIDE 98 MEQ/L (99-109); GFR ESTIMATE (CALCULATED) > 59 mL/min/; GLUCOSE 83 mg/dL (70-99); POTASSIUM 4.4 MEQ/L (3.7-5.4); SAMPLE HEMOLYSIS CHECK 0; SAMPLE ICTERIC CHECK 0; SAMPLE LIPEMIA CHECK 0; UREA NITROGEN (BUN) 23 mg/dL (9-23)
[2016-09-16 08:32] LABS: SODIUM 135 MEQ/L (136-147)
[2016-09-16 08:35] LABS: HEMATOCRIT 36.4 % (36.0-46.0); MCH 27.9 PG (29.0-34.0); MCHC 30.2 G/DL (30.0-36.0); MCV 92.4 FL (83-99); MEAN PLAT.VOLUME 8.6 uM^3 (9.5-12.4); PLATELET COUNT 430 K/uL (156-360); RBC DIS.WIDTH-CV 16.8 % (11.8-14.6); RED BLOOD COUNT 3.94 M/uL (3.80-5.20)
[2016-09-16 08:44] LABS: WHITE BLOOD COUNT 23.5 K/uL (4.1-10.2)
[2016-09-16 09:17] LABS: ABS NEUTROPHIL COUNT 20.5; ANISOCYTOSIS 1+; ATYPICAL LYMPHOCYTE 0.4 %; BAND NEUTROPHILS 1.7 % (0-8.0); EOSINOPHIL ABS CT 0; INSTRUMENT ABS NEUTROPHIL CT 18.6 K/uL; LYMPHOCYTES 6.2 % (15.0-45.0); MACROCYTES 1+; METAMYELOCYTES 0.9 %; MYELOCYTES 3.1 %; PLAT.SUFFICIENCY INCREASED; POLYCHROMASIA 1+; SEG.NEUTROPHILS 85.5 % (46.0-76.0)
[2016-09-16 11:04] VITALS: BP 106/78
[2016-09-16 15:54] VITALS: BP 136/84
[2016-09-16 20:00] VITALS: BP 107/73
[2016-09-17] VITALS: BP 108/63
[2016-09-17 04:00] VITALS: BP 96/62
[2016-09-17 07:24] LABS: HEMATOCRIT 32.2 % (36.0-46.0); MCH 27.8 PG (29.0-34.0); MCHC 30.1 G/DL (30.0-36.0); MCV 92.3 FL (83-99); MEAN PLAT.VOLUME 8.9 uM^3 (9.5-12.4); PLATELET COUNT 395 K/uL (156-360); RBC DIS.WIDTH-CV 16.8 % (11.8-14.6); RBC DIS.WIDTH-SD 55.8 % (39-53); RED BLOOD COUNT 3.49 M/uL (3.80-5.20); WHITE BLOOD COUNT 20.5 K/uL (4.1-10.2)
[2016-09-17 07:48] VITALS: BP 102/62
[2016-09-17 07:58] LABS: ANION GAP 7 MEQ/L (2-14); CHLORIDE 100 MEQ/L (99-109); GFR ESTIMATE (CALCULATED) > 59 mL/min/; POTASSIUM 4.1 MEQ/L (3.7-5.4); SAMPLE HEMOLYSIS CHECK 0; SAMPLE ICTERIC CHECK 0; SAMPLE LIPEMIA CHECK 0; SODIUM 139 MEQ/L (136-147); UREA NITROGEN (BUN) 17 mg/dL (9-23)
[2016-09-17 07:59] LABS: GLUCOSE 108 mg/dL (70-99)
[2016-09-17 11:02] VITALS: BP 104/70
[2016-09-17 15:55] VITALS: BP 114/63
[2016-09-18] VITALS: BP 97/57
[2016-09-18 03:45] VITALS: BP 111/62
[2016-09-18 07:30] VITALS: BP 113/67
[2016-09-18 07:32] LABS: BASOPHIL COUNT 0.1 K/uL (0-0.1); EOSINOPHIL (%) 0.8 % (0-5); EOSINOPHIL COUNT 0.1 K/uL (0-0.3); HEMATOCRIT 35.7 % (36.0-46.0); IMMATURE GRANULOCYTE (%) 1.2 % (0.0-0.7); IMMATURE GRANULOCYTE COUNT 0.2 K/uL; INSTRUMENT ABS NEUTROPHIL CT 14.8 K/uL; LYMPHOCYTE COUNT 2.2 K/uL (1.0-2.8); MCH 27.7 PG (29.0-34.0); MCHC 29.7 G/DL (30.0-36.0); MCV 93.5 FL (83-99); MEAN PLAT.VOLUME 8.6 uM^3 (9.5-12.4); MONOCYTE (%) 6.2 % (3-12); MONOCYTE COUNT 1.2 K/uL (0-0.8); NEUTROPHIL (%) 79.6 % (45-76); NEUTROPHIL COUNT 14.8 K/uL (1.8-6.4); PLATELET COUNT 390 K/uL (156-360); RBC DIS.WIDTH-CV 17.2 % (11.8-14.6); RBC DIS.WIDTH-SD 58.1 % (39-53); RED BLOOD COUNT 3.82 M/uL (3.80-5.20); WHITE BLOOD COUNT 18.6 K/uL (4.1-10.2)
[2016-09-18 07:57] LABS: ANION GAP 8 MEQ/L (2-14); CHLORIDE 98 MEQ/L (99-109); GFR ESTIMATE (CALCULATED) > 59 mL/min/; GLUCOSE 82 mg/dL (70-99); POTASSIUM 4.3 MEQ/L (3.7-5.4); SAMPLE HEMOLYSIS CHECK 0; SAMPLE ICTERIC CHECK 0; SAMPLE LIPEMIA CHECK 0; SODIUM 138 MEQ/L (136-147); UREA NITROGEN (BUN) 17 mg/dL (9-23)
[2016-09-18 11:44] VITALS: BP 101/54
[2016-09-18 16:01] VITALS: BP 97/54
== END 2016-09-18 19:20 | disposition home or self-care (01) | DRG 181 ==
LOC: EME 10:56 → 5SOUTH 21:38 → EDOF 21:38 → 5SOUTH 23:34
PROVIDERS: Hospitalist; Internal Medicine; Nurse Practitioner Adult Health
DX: C34.32 Malignant neoplasm of lower lobe, left bronchus or lung (principal); J44.1 Chronic obstructive pulmonary disease with (acute) exacerbation; E88.09 Other disorders of plasma-protein metabolism, not elsewhere classified; I10 Essential (primary) hypertension; C34.31 Malignant neoplasm of lower lobe, right bronchus or lung; D63.0 Anemia in neoplastic disease; D72.829 Elevated white blood cell count, unspecified; T38.0X5A Adverse effect of glucocorticoids and synthetic analogues, initial encounter; E78.5 Hyperlipidemia, unspecified; R00.0 Tachycardia, unspecified; G89.29 Other chronic pain; F41.9 Anxiety disorder, unspecified; K21.9 Gastro-esophageal reflux disease without esophagitis; G43.909 Migraine, unspecified, not intractable, without status migrainosus; J98.11 Atelectasis; J98.4 Other disorders of lung; Z87.891 Personal history of nicotine dependence; F31.9 Bipolar disorder, unspecified; G89.3 Neoplasm related pain (acute) (chronic); R63.4 Abnormal weight loss; Z68.22 Body mass index [BMI] 22.0-22.9, adult
CPT/HCPCS: 71020; 71275; 80048; 84484; 85007; 85025; 85027; 86850; 86900; 86901; 87040; 88305; 93005; 93970; 94640; 94640 76; 94644; 99202; 99281; 99285; J0330; J0690; J1100; J1170; J1644; J1885; J2250; J2405; J2710; J2930; J3010; J7120; J7512

== ENCOUNTER → 2016-10-12 | Outpatient (CLI) | payer OTHER ==
[~2016-10-12] MED LIST changes: +CENTRUM SILVER1 EAC3 PO; +VITAMIN B-12500 MC5 PO
== END | disposition home or self-care (01) ==
LOC: NUC 12:34 → RAD 12:34 → NUC 13:00
DX: R91.8 Other nonspecific abnormal finding of lung field (principal); J90 Pleural effusion, not elsewhere classified
CPT/HCPCS: 71020; 78598; A9540; A9567

== ENCOUNTER 2016-10-18 09:45 | Inpatient (IN) | payer OTHER ==
[~2016-10-18] VITALS: Ht 162.6 cm; Wt 74.6 kg
[2016-10-18 16:26] LABS: MEAN PLAT.VOLUME 8.8 uM^3 (9.5-12.4); PLATELET COUNT 499 K/uL (156-360)
[2016-10-18 16:35] LABS: CHLORIDE 105 mEq/L (99-109); POTASSIUM 3.6 mEq/L (3.7-5.4); SODIUM 139 mEq/L (136-147)
[2016-10-18 16:37] LABS: GLUCOSE 126 mg/dL (70-99); HEMATOCRIT 27.4 % (36.0-46.0); MCH 29.6 PG (29.0-34.0); MCHC 29.9 G/DL (30.0-36.0); MCV 98.9 FL (83-99); RBC DIS.WIDTH-CV 17.3 % (11.8-14.6); RBC DIS.WIDTH-SD 62.3 % (39-53); RED BLOOD COUNT 2.77 M/uL (3.80-5.20)
[2016-10-18 16:38] LABS: ANION GAP 10 MEQ/L (2-14)
[2016-10-18 16:41] LABS: GFR ESTIMATE (CALCULATED) > 59 mL/min/; WHITE BLOOD COUNT 30.2 K/uL (4.1-10.2)
[2016-10-18 16:42] LABS: UREA NITROGEN (BUN) 10 mg/dL (9-23)
[2016-10-18 16:48] LABS: TROP-I INTERPRETATION NEGATIVE; TROPONIN-I < 0.01 ng/mL (0.0-0.30)
[2016-10-18] MEDS ORDERED: SPIRIVA1 INHALATI IH (21:00)
[2016-10-18] MEDS ORDERED: CLONAZEPAM0.5 MG PO (21:01)
[2016-10-18] MEDS ORDERED: NEURONTIN300 MG PO ×2 (21:02→21:05)
[2016-10-18 21:12] LABS: INTER. NORMALIZED RATIO 1.3; PROTHROMBIN TIME 12.9 (9.2-11.2); PTT 34.4 (25-32)
[2016-10-19] VITALS (9 sets, daily range): BP systolic 96–124; BP diastolic 55–83
[2016-10-19 16:26] LABS: ABS NEUTROPHIL COUNT 32.5; BAND NEUTROPHILS 7.7 % (0-8.0); EOSINOPHIL ABS CT 0; HEMATOCRIT 29.8 % (36.0-46.0); INSTRUMENT ABS NEUTROPHIL CT 29.6 K/uL; LYMPHOCYTES 2.6 % (15.0-45.0); MCH 29.8 PG (29.0-34.0); MCHC 32.6 G/DL (30.0-36.0); MEAN PLAT.VOLUME 9.4 uM^3 (9.5-12.4); METAMYELOCYTES 0.9 %; NRBC (%) 0.1 /100 WBC (0-0); RBC DIS.WIDTH-CV 16.9 % (11.8-14.6); RBC DIS.WIDTH-SD 54.4 % (39-53); RED BLOOD COUNT 3.25 M/uL (3.80-5.20); SEG.NEUTROPHILS 86.2 % (46.0-76.0)
[2016-10-19 16:27] LABS: MCV 91.7 FL (83-99); PLATELET COUNT 273 K/uL (156-360); WHITE BLOOD COUNT 34.6 K/uL (4.1-10.2)
[2016-10-19 19:55] LABS: BASE EXCESS -2.1 mEq/L (-3 to +3); BICARBONATE 23.2 mEq/L (22-26); METHEMOGLOBIN 1.8 % (0-1.5); PCO2 41 mm Hg (35-45); PO2 235 mm Hg (80-100); pH 7.36 (7.35-7.45)
[2016-10-19 19:56] LABS: COMMENTS - BLOOD GASES C+; DEVICE VENT; FI02 50 %; MECHANICAL RATE 16 resp/min; MODE A/C; PEEP 5 CM/H20; SITE RR ALINE; TIDAL VOLUME 350 ML; TOTAL RESP RATE 16 resp/min
[2016-10-20] VITALS (13 sets, daily range): BP systolic 75–120; BP diastolic 53–83
[2016-10-20 01:29] LABS: INTER. NORMALIZED RATIO 1.2; PROTHROMBIN TIME 12.2 (9.2-11.2); PTT 27.3 (25-32)
[2016-10-20 01:32] LABS: CHLORIDE 114 mEq/L (99-109); HEMATOCRIT 31.6 % (36.0-46.0); MCH 29.1 PG (29.0-34.0); MCHC 33.9 G/DL (30.0-36.0); MCV 85.9 FL (83-99); MEAN PLAT.VOLUME 10.1 uM^3 (9.5-12.4); NRBC (%) 0.3 /100 WBC (0-0); PLATELET COUNT 279 K/uL (156-360); RBC DIS.WIDTH-CV 16.7 % (11.8-14.6); RBC DIS.WIDTH-SD 49.1 % (39-53); RED BLOOD COUNT 3.68 M/uL (3.80-5.20); WHITE BLOOD COUNT 23.3 K/uL (4.1-10.2)
[2016-10-20 01:33] LABS: POTASSIUM 4.3 mEq/L (3.7-5.4); SODIUM 143 mEq/L (136-147)
[2016-10-20 01:34] LABS: GLUCOSE 134 mg/dL (70-99)
[2016-10-20 01:36] LABS: ANION GAP 9 MEQ/L (2-14)
[2016-10-20 01:38] LABS: GFR ESTIMATE (CALCULATED) > 59 mL/min/
[2016-10-20 01:39] LABS: UREA NITROGEN (BUN) 9 mg/dL (9-23)
[2016-10-20 01:53] LABS: METH RESISTANT S AUREUS PCR NEGATIVE (NEGATIVE)
[2016-10-20 01:57] LABS: PROBE CHECK PASS; SPECIMEN PROCESSING CONTROL PASS
[2016-10-20 07:41] LABS: ANION GAP 10 MEQ/L (2-14); CHLORIDE 113 MEQ/L (99-109); GFR ESTIMATE (CALCULATED) > 59 mL/min/; GLUCOSE 115 mg/dL (70-99); POTASSIUM 4.2 MEQ/L (3.7-5.4); SAMPLE HEMOLYSIS CHECK 0; SAMPLE ICTERIC CHECK 0; SAMPLE LIPEMIA CHECK 0; SODIUM 144 MEQ/L (136-147); UREA NITROGEN (BUN) 9 mg/dL (9-23)
[2016-10-20 07:47] LABS: HEMATOCRIT 33.5 % (36.0-46.0); MCH 29.7 PG (29.0-34.0); MCV 87.2 FL (83-99); MEAN PLAT.VOLUME 10.3 uM^3 (9.5-12.4); NRBC (%) 0.5 /100 WBC (0-0); PLATELET COUNT 312 K/uL (156-360); RBC DIS.WIDTH-CV 17.5 % (11.8-14.6); RBC DIS.WIDTH-SD 51.5 % (39-53); RED BLOOD COUNT 3.84 M/uL (3.80-5.20)
[2016-10-20 07:51] LABS: WHITE BLOOD COUNT 15.7 K/uL (4.1-10.2)
[2016-10-20 10:03] LABS: BASE EXCESS -1.3 mEq/L (-3 to +3); BICARBONATE 22.6 mEq/L (22-26); CARBOXY HGB 2.9 % (0-5); COMMENTS - BLOOD GASES NEG A+C+; DEVICE VENT; FI02 30 %; METHEMOGLOBIN 1.5 % (0-1.5); MODE TC; PCO2 34 mm Hg (35-45); PEEP 5 CM/H20; PO2 110 mm Hg (80-100); SITE LR; TOTAL RESP RATE 19 resp/min; pH 7.43 (7.35-7.45)
[2016-10-21] VITALS (12 sets, daily range): BP systolic 83–100; BP diastolic 48–66
[2016-10-21 06:18] LABS: HEMATOCRIT 24.4 % (36.0-46.0); MCH 29.4 PG (29.0-34.0); MCHC 32.4 G/DL (30.0-36.0); MCV 90.7 FL (83-99); MEAN PLAT.VOLUME 9.4 uM^3 (9.5-12.4); NRBC (%) 0.4 /100 WBC (0-0); PLATELET COUNT 297 K/uL (156-360); RBC DIS.WIDTH-CV 18.2 % (11.8-14.6); RBC DIS.WIDTH-SD 57.1 % (39-53); WHITE BLOOD COUNT 11.2 K/uL (4.1-10.2)
[2016-10-21 06:25] LABS: RED BLOOD COUNT 2.69 M/uL (3.80-5.20)
[2016-10-21 06:35] LABS: ANION GAP 6 MEQ/L (2-14); CHLORIDE 110 MEQ/L (99-109); GFR ESTIMATE (CALCULATED) > 59 mL/min/; GLUCOSE 95 mg/dL (70-99); POTASSIUM 3.6 MEQ/L (3.7-5.4); SAMPLE HEMOLYSIS CHECK 0; SAMPLE ICTERIC CHECK 0; SAMPLE LIPEMIA CHECK 0; SODIUM 143 MEQ/L (136-147); UREA NITROGEN (BUN) 6 mg/dL (9-23)
[2016-10-21 09:19] LABS: MCV 88.2 FL (83-99)
[2016-10-21 12:21] LABS: MAGNESIUM 1.8 mg/dl (1.3-2.7)
[2016-10-22] VITALS (13 sets, daily range): BP systolic 81–104; BP diastolic 53–69
[2016-10-22 08:01] LABS: HEMATOCRIT 24.8 % (36.0-46.0); MCH 29.4 PG (29.0-34.0); MCHC 31.9 G/DL (30.0-36.0); NRBC (%) 0.4 /100 WBC (0-0); RBC DIS.WIDTH-CV 17.9 % (11.8-14.6); RBC DIS.WIDTH-SD 57.7 % (39-53); RED BLOOD COUNT 2.69 M/uL (3.80-5.20); WHITE BLOOD COUNT 8.9 K/uL (4.1-10.2)
[2016-10-22 08:02] LABS: MCV 92.2 FL (83-99)
[2016-10-22 08:19] LABS: ANION GAP 8 MEQ/L (2-14); CHLORIDE 109 MEQ/L (99-109); GFR ESTIMATE (CALCULATED) > 59 mL/min/; GLUCOSE 88 mg/dL (70-99); PLAT.SUFFICIENCY ADEQUATE; PLATELET CLUMPS PRESENT - PLATELET COUNT APPEARS ADQ.; PLATELET COUNT UNABLE TO REPORT K/uL (156-360); SAMPLE HEMOLYSIS CHECK 0; SAMPLE ICTERIC CHECK 0; SAMPLE LIPEMIA CHECK 0; SODIUM 142 MEQ/L (136-147); UREA NITROGEN (BUN) 4 mg/dL (9-23)
[2016-10-23] VITALS (17 sets, daily range): BP systolic 84–113; BP diastolic 51–75
[2016-10-23 06:30] LABS: HEMATOCRIT 26.9 % (36.0-46.0); MCH 29.8 PG (29.0-34.0); MCHC 31.6 G/DL (30.0-36.0); MCV 94.4 FL (83-99); MEAN PLAT.VOLUME 9.5 uM^3 (9.5-12.4); NRBC (%) 0.4 /100 WBC (0-0); PLATELET COUNT 363 K/uL (156-360); RBC DIS.WIDTH-CV 18.9 % (11.8-14.6); RBC DIS.WIDTH-SD 58.4 % (39-53); RED BLOOD COUNT 2.85 M/uL (3.80-5.20); WHITE BLOOD COUNT 10.1 K/uL (4.1-10.2)
[2016-10-23 06:54] LABS: ANION GAP 6 MEQ/L (2-14); CHLORIDE 107 MEQ/L (99-109); GFR ESTIMATE (CALCULATED) > 59 mL/min/; GLUCOSE 82 mg/dL (70-99); POTASSIUM 4.2 MEQ/L (3.7-5.4); PREALBUMIN 7.5 mg/dL (10-40); SAMPLE HEMOLYSIS CHECK 0; SAMPLE ICTERIC CHECK 0; SAMPLE LIPEMIA CHECK 0; SODIUM 141 MEQ/L (136-147); UREA NITROGEN (BUN) 5 mg/dL (9-23)
[2016-10-24] VITALS (15 sets, daily range): BP systolic 81–102; BP diastolic 51–70
[2016-10-25] VITALS (16 sets, daily range): BP systolic 79–110; BP diastolic 46–65
[2016-10-26 02:56] VITALS: BP 115/71
[2016-10-26 07:34] VITALS: BP 106/57
[2016-10-26 07:57] LABS: ANION GAP 9 MEQ/L (2-14); CHLORIDE 106 MEQ/L (99-109); GFR ESTIMATE (CALCULATED) > 59 mL/min/; GLUCOSE 80 mg/dL (70-99); POTASSIUM 3.9 MEQ/L (3.7-5.4); SAMPLE HEMOLYSIS CHECK 0; SAMPLE ICTERIC CHECK 0; SAMPLE LIPEMIA CHECK 0; SODIUM 144 MEQ/L (136-147); UREA NITROGEN (BUN) 17 mg/dL (9-23)
[2016-10-26 08:15] LABS: HEMATOCRIT 27.8 % (36.0-46.0); MCH 29.9 PG (29.0-34.0); MCHC 30.6 G/DL (30.0-36.0); MCV 97.9 FL (83-99); MEAN PLAT.VOLUME 9.4 uM^3 (9.5-12.4); RBC DIS.WIDTH-CV 18.9 % (11.8-14.6); RBC DIS.WIDTH-SD 64.3 % (39-53); RED BLOOD COUNT 2.84 M/uL (3.80-5.20)
[2016-10-26 08:24] LABS: PLATELET COUNT 505 K/uL (156-360); WHITE BLOOD COUNT 6.2 K/uL (4.1-10.2)
[2016-10-26 11:26] VITALS: BP 103/55
[2016-10-26 16:24] VITALS: BP 107/55
[2016-10-26 20:03] VITALS: BP 112/67
[2016-10-27 05:00] VITALS: BP 104/70
[2016-10-27 08:00] VITALS: BP 117/76
[2016-10-27 13:42] VITALS: BP 99/57
[2016-10-27 17:14] VITALS: BP 101/68
[2016-10-27 19:51] VITALS: BP 98/61
[2016-10-27 23:27] VITALS: BP 101/60
[2016-10-28 02:26] VITALS: BP 107/53
[2016-10-28 07:56] VITALS: BP 107/62
[2016-10-28 12:00] VITALS: BP 98/52
[2016-10-28 16:00] VITALS: BP 98/56
[2016-10-28 19:53] VITALS: BP 107/54
[2016-10-28 23:08] VITALS: BP 100/58
[2016-10-29 03:16] VITALS: BP 110/68
[2016-10-29 07:15] VITALS: BP 95/60
[2016-10-29 12:05] VITALS: BP 92/50
[2016-10-29 16:30] VITALS: BP 133/59
[2016-10-29 19:30] VITALS: BP 108/55
[2016-10-29 22:45] VITALS: BP 92/56
[2016-10-30] VITALS (7 sets, daily range): BP systolic 78–93; BP diastolic 53–60
[2016-10-30 08:39] LABS: ANION GAP 9 MEQ/L (2-14); CHLORIDE 102 MEQ/L (99-109); GFR ESTIMATE (CALCULATED) > 59 mL/min/; GLUCOSE 101 mg/dL (70-99); POTASSIUM 4.3 MEQ/L (3.7-5.4); SAMPLE HEMOLYSIS CHECK 0; SAMPLE ICTERIC CHECK 0; SAMPLE LIPEMIA CHECK 0; SODIUM 138 MEQ/L (136-147); UREA NITROGEN (BUN) 13 mg/dL (9-23)
[2016-10-30 08:54] LABS: BASOPHIL COUNT 0.1 K/uL (0-0.1); EOSINOPHIL (%) 1.4 % (0-5); EOSINOPHIL COUNT 0.1 K/uL (0-0.3); HEMATOCRIT 32.1 % (36.0-46.0); IMMATURE GRANULOCYTE (%) 1.1 % (0.0-0.7); IMMATURE GRANULOCYTE COUNT 0.1 K/uL; INSTRUMENT ABS NEUTROPHIL CT 5.9 K/uL; LYMPHOCYTE COUNT 1.7 K/uL (1.0-2.8); MCHC 30.5 G/DL (30.0-36.0); MCV 98.2 FL (83-99); MONOCYTE (%) 10.8 % (3-12); NEUTROPHIL COUNT 5.9 K/uL (1.8-6.4); NRBC (%) 0.2 /100 WBC (0-0); PLATELET COUNT 503 K/uL (156-360); RBC DIS.WIDTH-CV 18.1 % (11.8-14.6); RBC DIS.WIDTH-SD 64.2 % (39-53); RED BLOOD COUNT 3.27 M/uL (3.80-5.20); WHITE BLOOD COUNT 8.8 K/uL (4.1-10.2)
[2016-10-31 01:12] VITALS: BP 86/56
[2016-10-31 05:48] VITALS: BP 100/62
[2016-10-31 08:00] VITALS: BP 92/52
[2016-10-31] MEDS ORDERED: DOCUSATE SODIU100 MG PO (10:33)
[2016-10-31] MEDS ORDERED: DIGOXIN125 MCG PO (10:33)
[2016-10-31] MEDS ORDERED: TRAMADOL HCL50 MG PO (10:33)
[2016-10-31] MEDS ORDERED: CHROMAGEN,1 CAPSULE PO (10:33)
[2016-10-31] MEDS ORDERED: LOPRESSOR25 MG PO (10:46)
[2016-10-31 12:24] VITALS: BP 98/50
== END 2016-10-31 17:10 | disposition home health service (06) | DRG 164 ==
LOC: NUC 09:45 → EME 09:45 → NUC 09:45 → EDOF 20:30 → 2EAST 20:30 → 4WEST 20:30 → 2EAST 22:00 → 4WEST 10-19 17:23 → 4EAST 10-25 20:39
PROVIDERS: Emergency Medicine; Internal Medicine Nephrology; Psychiatry & Neurology Neurology; Surgery; Thoracic Surgery (Cardiothoracic Vascular Surgery)
PROC: 5A1945Z Respiratory Ventilation, 24-96 Consecutive Hours (ICD-10-PCS; principal; 2016-10-18)
PROC: 07B70ZX Excision of Thorax Lymphatic, Open Approach, Diagnostic (ICD-10-PCS; principal; 2016-10-18)
PROC: [UNRECOGNIZED PROCEDURE] (principal; 2016-10-18)
PROC: 0BH17EZ Insertion of Endotracheal Airway into Trachea, Via Natural or Artificial Opening (ICD-10-PCS; principal; 2016-10-18)
PROC: [UNRECOGNIZED PROCEDURE] (principal; 2016-10-18)
PROC: 02Q Heart and Great Vessels, Repair (ICD-10-PCS; principal; 2016-10-18)
PROC: 30263N1 (ICD-10-PCS; principal; 2016-10-18)
PROC: 0BTL0ZZ Resection of Left Lung, Open Approach (ICD-10-PCS; principal; 2016-10-18)
DX: C34.92 Malignant neoplasm of unspecified part of left bronchus or lung (principal); R63.4 Abnormal weight loss; I95.9 Hypotension, unspecified; J44.9 Chronic obstructive pulmonary disease, unspecified; F32.9 Major depressive disorder, single episode, unspecified; E04.1 Nontoxic single thyroid nodule; I82.612 Acute embolism and thrombosis of superficial veins of left upper extremity; I80.8 Phlebitis and thrombophlebitis of other sites; J94.8 Other specified pleural conditions; G89.3 Neoplasm related pain (acute) (chronic); R60.0 Localized edema; R09.02 Hypoxemia; R00.0 Tachycardia, unspecified; R07.9 Chest pain, unspecified; F41.9 Anxiety disorder, unspecified; I05.9 Rheumatic mitral valve disease, unspecified; I11.0 Hypertensive heart disease with heart failure; E78.5 Hyperlipidemia, unspecified; I48.92 Unspecified atrial flutter; Z72.0 Tobacco use; Z99.81 Dependence on supplemental oxygen; K21.9 Gastro-esophageal reflux disease without esophagitis; I34.1 Nonrheumatic mitral (valve) prolapse; Z88.6 Allergy status to analgesic agent; R57.9 Shock, unspecified; J98.11 Atelectasis; J90 Pleural effusion, not elsewhere classified; E87.6 Hypokalemia; Y83.6 Removal of other organ (partial) (total) as the cause of abnormal reaction of the patient, or of later complication, without mention of misadventure at the time of the procedure; Y92.234 Operating room of hospital as the place of occurrence of the external cause; I97.620 Postprocedural hemorrhage of a circulatory system organ or structure following other procedure; J95.71 Accidental puncture and laceration of a respiratory system organ or structure during a respiratory system procedure; Y83.8 Other surgical procedures as the cause of abnormal reaction of the patient, or of later complication, without mention of misadventure at the time of the procedure
CPT/HCPCS: 36600; 36620; 71010; 71275; 78452; 80048; 80048 91; 80162; 82040; 82330; 82533 91; 82803; 82948; 83605; 83735; 84100; 84132 91; 84134; 84443; 84484; 85014; 85018; 85025; 85027; 85610; 85730; 86900; 86901; 86920; 87040; 87070; 87205; 87641; 88305; 88309; 88341 TC; 88342 TC; 93005; 93017; 93970; 93971; 94002; 94003; 94010; 94640; 94640 76; 94667; 94668; 94799; 97530 GO; 97530 GP; 99202; 99281; 99285; A9500; C1768; J0610; J0690; J1160; J1644; J1885; J2060; J2370; J2704; J2785; J3010; J3420; J3480; J7030; J7040; J7050; J7120; P9016; P9017; P9035; P9040; P9045; S0028

== ENCOUNTER 2017-01-11 12:32 | Inpatient (IN) | payer OTHER ==
[~2017-01-11] VITALS: Ht 162.6 cm; Wt 59.5 kg
[~2017-01-11 12:32] MED LIST changes: +CHROMAGEN,1 CAPSULE PO; +CLONAZEPAM0.5 MG PO; +COLACE100 MG PO; +DIGOXIN125 MCG PO; +DOCUSATE SODIU100 MG PO; +LOPRESSOR25 MG PO; +NEURONTIN300 MG PO; +SPIRIVA1 INHALATI IH; +TRAMADOL HCL50 MG PO; +WELLBUTRIN SR100 MG PO; -WELLBUTRIN100 MG PO
[2017-01-11 14:12] LABS: BASOPHIL COUNT 0.1 K/uL (0-0.1); EOSINOPHIL (%) 0.4 % (0-5); HEMATOCRIT 31.1 % (36.0-46.0); IMMATURE GRANULOCYTE COUNT 0.4 K/uL; INSTRUMENT ABS NEUTROPHIL CT 7.8 K/uL; LYMPHOCYTE COUNT 0.5 K/uL (1.0-2.8); MCH 27.7 PG (29.0-34.0); MCHC 30.9 G/DL (30.0-36.0); MCV 89.6 FL (83-99); MEAN PLAT.VOLUME 9.2 uM^3 (9.5-12.4); MONOCYTE (%) 4.7 % (3-12); MONOCYTE COUNT 0.4 K/uL (0-0.8); NEUTROPHIL (%) 84.1 % (45-76); NEUTROPHIL COUNT 7.8 K/uL (1.8-6.4); NRBC (%) 0.2 /100 WBC (0-0); PLATELET COUNT 328 K/uL (156-360); RBC DIS.WIDTH-CV 17.5 % (11.8-14.6); RBC DIS.WIDTH-SD 52.8 % (39-53); RED BLOOD COUNT 3.47 M/uL (3.80-5.20); WHITE BLOOD COUNT 9.3 K/uL (4.1-10.2)
[2017-01-11 14:23] LABS: CHLORIDE 103 mEq/L (99-109); POTASSIUM 3.9 mEq/L (3.7-5.4); SODIUM 140 mEq/L (136-147)
[2017-01-11 14:25] LABS: GLUCOSE 87 mg/dL (70-99)
[2017-01-11 14:26] LABS: ANION GAP 10 MEQ/L (2-14)
[2017-01-11 14:27] LABS: TOTAL BILIRUBIN 0.8 mg/dL (0.0-1.0)
[2017-01-11 14:29] LABS: ALKALINE PHOSPHATASE 323 IU/L (3-129); GFR ESTIMATE (CALCULATED) > 59 mL/min/
[2017-01-11 14:30] LABS: UREA NITROGEN (BUN) 18 mg/dL (9-23)
[2017-01-11] MEDS ORDERED: TRILEPTAL300 MG PO (16:44)
[2017-01-11 21:42] VITALS: BP 94/61
[2017-01-11 23:48] VITALS: BP 102/59
[2017-01-12 03:43] VITALS: BP 106/50
[2017-01-12 05:34] LABS: ADD MIUA? NO; BILIRUBIN NEGATIVE; BLOOD NEGATIVE; COLOR YELLOW ((YELLOW)); GLUCOSE (STRIP) NEGATIVE; KETONES NEGATIVE; LEUKOCYTES NEGATIVE; NITRITE NEGATIVE; PROTEIN (STRIP) NEGATIVE; SPECIFIC GRAVITY 1.021 (1.000-1.030); UCUL ADDED? NO
[2017-01-12 07:03] LABS: HEMATOCRIT 28.2 % (36.0-46.0); MCH 28.5 PG (29.0-34.0); MCHC 31.6 G/DL (30.0-36.0); MCV 90.4 FL (83-99); MEAN PLAT.VOLUME 9.4 uM^3 (9.5-12.4); PLATELET COUNT 299 K/uL (156-360); RBC DIS.WIDTH-CV 17.7 % (11.8-14.6); RBC DIS.WIDTH-SD 53.4 % (39-53); RED BLOOD COUNT 3.12 M/uL (3.80-5.20); WHITE BLOOD COUNT 7.6 K/uL (4.1-10.2)
[2017-01-12 07:34] LABS: ANION GAP 8 MEQ/L (2-14); CHLORIDE 102 MEQ/L (99-109); GFR ESTIMATE (CALCULATED) > 59 mL/min/; SAMPLE HEMOLYSIS CHECK 0; SAMPLE ICTERIC CHECK 0; SAMPLE LIPEMIA CHECK 0; SODIUM 141 MEQ/L (136-147); TOTAL BILIRUBIN 0.5 MG/DL (0.0-1.0); UREA NITROGEN (BUN) 16 mg/dL (9-23)
[2017-01-12 07:37] LABS: ALKALINE PHOSPHATASE 299 IU/L (3-129); GLUCOSE 182 mg/dL (70-99)
[2017-01-12 08:24] VITALS: BP 96/63
[2017-01-12 12:53] VITALS: BP 96/57
[2017-01-12 15:22] VITALS: BP 92/59
[2017-01-12 19:58] VITALS: BP 100/62
[2017-01-12 23:47] VITALS: BP 104/67
[2017-01-13 03:33] VITALS: BP 106/53
[2017-01-13 05:54] LABS: HEMATOCRIT 27.7 % (36.0-46.0); MCH 29.1 PG (29.0-34.0); MCHC 32.5 G/DL (30.0-36.0); MCV 89.6 FL (83-99); MEAN PLAT.VOLUME 9.2 uM^3 (9.5-12.4); NRBC (%) 0.2 /100 WBC (0-0); PLATELET COUNT 293 K/uL (156-360); RBC DIS.WIDTH-SD 52.1 % (39-53); RED BLOOD COUNT 3.09 M/uL (3.80-5.20); WHITE BLOOD COUNT 10.2 K/uL (4.1-10.2)
[2017-01-13 06:31] LABS: ALKALINE PHOSPHATASE 248 IU/L (3-129); ANION GAP 7 MEQ/L (2-14); CHLORIDE 106 MEQ/L (99-109); GFR ESTIMATE (CALCULATED) > 59 mL/min/; GLUCOSE 139 mg/dL (70-99); SAMPLE HEMOLYSIS CHECK 0; SAMPLE ICTERIC CHECK 0; SAMPLE LIPEMIA CHECK 0; SODIUM 144 MEQ/L (136-147); TOTAL BILIRUBIN 0.4 MG/DL (0.0-1.0); UREA NITROGEN (BUN) 14 mg/dL (9-23)
[2017-01-13 08:15] VITALS: BP 109/65
[2017-01-13 17:08] VITALS: BP 113/64
[2017-01-13 20:08] VITALS: BP 108/64
[2017-01-13 23:37] VITALS: BP 109/67
[2017-01-14 03:51] VITALS: BP 102/59
[2017-01-14 07:53] VITALS: BP 109/65
[2017-01-14 11:29] VITALS: BP 110/63
[2017-01-14 16:50] VITALS: BP 108/66
[2017-01-14 19:52] VITALS: BP 109/66
[2017-01-14 23:30] VITALS: BP 111/72
[2017-01-15 04:40] VITALS: BP 110/64
[2017-01-15 07:52] VITALS: BP 119/61
[2017-01-15 10:59] VITALS: BP 153/69
[2017-01-15 15:42] VITALS: BP 134/76
[2017-01-15 20:00] VITALS: BP 107/53
[2017-01-15 23:37] VITALS: BP 108/61
[2017-01-16 03:29] VITALS: BP 117/68
[2017-01-16 06:27] LABS: MCH 28.2 PG (29.0-34.0); MCHC 31.2 G/DL (30.0-36.0); MCV 90.4 FL (83-99); MEAN PLAT.VOLUME 9.1 uM^3 (9.5-12.4); PLATELET COUNT 332 K/uL (156-360); RBC DIS.WIDTH-CV 20.2 % (11.8-14.6); RBC DIS.WIDTH-SD 58.7 % (39-53); RED BLOOD COUNT 3.65 M/uL (3.80-5.20); WHITE BLOOD COUNT 13.4 K/uL (4.1-10.2)
[2017-01-16 07:01] LABS: ANION GAP 6 MEQ/L (2-14); CHLORIDE 96 MEQ/L (99-109); GFR ESTIMATE (CALCULATED) > 59 mL/min/; POTASSIUM 4.4 MEQ/L (3.7-5.4); SAMPLE HEMOLYSIS CHECK 0; SAMPLE ICTERIC CHECK 0; SAMPLE LIPEMIA CHECK 0; UREA NITROGEN (BUN) 21 mg/dL (9-23)
[2017-01-16 07:08] LABS: GLUCOSE 99 mg/dL (70-99); SODIUM 136 MEQ/L (136-147)
[2017-01-16 07:37] VITALS: BP 140/66
[2017-01-16 11:35] VITALS: BP 112/69
[2017-01-16 15:46] VITALS: BP 114/76
[2017-01-16 19:45] VITALS: BP 104/67
[2017-01-16 23:52] VITALS: BP 108/66
[2017-01-17 03:21] VITALS: BP 131/80
[2017-01-17 06:02] LABS: HEMATOCRIT 35.1 % (36.0-46.0); MCH 28.4 PG (29.0-34.0); MCHC 31.6 G/DL (30.0-36.0); MCV 89.8 FL (83-99); MEAN PLAT.VOLUME 9.1 uM^3 (9.5-12.4); PLATELET COUNT 321 K/uL (156-360); RBC DIS.WIDTH-CV 20.7 % (11.8-14.6); RBC DIS.WIDTH-SD 63.7 % (39-53); RED BLOOD COUNT 3.91 M/uL (3.80-5.20); WHITE BLOOD COUNT 14.5 K/uL (4.1-10.2)
[2017-01-17 07:24] LABS: ANION GAP 11 MEQ/L (2-14); CHLORIDE 98 MEQ/L (99-109); GFR ESTIMATE (CALCULATED) > 59 mL/min/; GLUCOSE 110 mg/dL (70-99); POTASSIUM 4.6 MEQ/L (3.7-5.4); SAMPLE HEMOLYSIS CHECK 1; SAMPLE ICTERIC CHECK 0; SAMPLE LIPEMIA CHECK 0; SODIUM 139 MEQ/L (136-147); UREA NITROGEN (BUN) 20 mg/dL (9-23)
[2017-01-17 08:09] VITALS: BP 108/67
[2017-01-17 11:54] VITALS: BP 90/59
[2017-01-17 19:25] VITALS: BP 116/69
[2017-01-17 23:23] VITALS: BP 114/55
[2017-01-18 03:03] VITALS: BP 115/66
[2017-01-18 06:17] VITALS: BP 104/66
[2017-01-18 06:48] LABS: HEMATOCRIT 36.3 % (36.0-46.0); MCH 28.4 PG (29.0-34.0); MCHC 31.4 G/DL (30.0-36.0); MCV 90.3 FL (83-99); MEAN PLAT.VOLUME 9.1 uM^3 (9.5-12.4); PLATELET COUNT 350 K/uL (156-360); RBC DIS.WIDTH-CV 21.3 % (11.8-14.6); RBC DIS.WIDTH-SD 67.3 % (39-53); RED BLOOD COUNT 4.02 M/uL (3.80-5.20); WHITE BLOOD COUNT 15.7 K/uL (4.1-10.2)
[2017-01-18 07:34] LABS: ANION GAP 9 MEQ/L (2-14); CHLORIDE 96 MEQ/L (99-109); GFR ESTIMATE (CALCULATED) > 59 mL/min/; GLUCOSE 102 mg/dL (70-99); POTASSIUM 4.9 MEQ/L (3.7-5.4); SAMPLE HEMOLYSIS CHECK 0; SAMPLE ICTERIC CHECK 0; SAMPLE LIPEMIA CHECK 0; SODIUM 135 MEQ/L (136-147); UREA NITROGEN (BUN) 21 mg/dL (9-23)
[2017-01-18 15:26] VITALS: BP 108/62
[2017-01-18 19:21] VITALS: BP 112/67
[2017-01-18 23:38] VITALS: BP 100/58
[2017-01-19 04:30] VITALS: BP 110/70
[2017-01-19 07:00] VITALS: BP 118/70
[2017-01-19 11:56] VITALS: BP 120/72
[2017-01-19 15:00] VITALS: BP 100/70
[2017-01-19 19:50] VITALS: BP 109/72
[2017-01-19 23:44] VITALS: BP 121/73
[2017-01-20 03:57] VITALS: BP 118/60
[2017-01-20 05:34] LABS: HEMATOCRIT 35.6 % (36.0-46.0); MCH 28.7 PG (29.0-34.0); MCHC 31.7 G/DL (30.0-36.0); MCV 90.4 FL (83-99); MEAN PLAT.VOLUME 8.7 uM^3 (9.5-12.4); PLATELET COUNT 290 K/uL (156-360); RBC DIS.WIDTH-CV 21.1 % (11.8-14.6); RBC DIS.WIDTH-SD 66.1 % (39-53); RED BLOOD COUNT 3.94 M/uL (3.80-5.20); WHITE BLOOD COUNT 18.6 K/uL (4.1-10.2)
[2017-01-20 06:03] LABS: ANION GAP 9 MEQ/L (2-14); CHLORIDE 98 MEQ/L (99-109); GFR ESTIMATE (CALCULATED) > 59 mL/min/; GLUCOSE 130 mg/dL (70-99); POTASSIUM 4.3 MEQ/L (3.7-5.4); SAMPLE HEMOLYSIS CHECK 0; SAMPLE ICTERIC CHECK 0; SAMPLE LIPEMIA CHECK 0; SODIUM 135 MEQ/L (136-147); UREA NITROGEN (BUN) 23 mg/dL (9-23)
[2017-01-20 07:59] VITALS: BP 111/69
[2017-01-20 11:48] VITALS: BP 118/67
[2017-01-20 16:11] VITALS: BP 116/66
[2017-01-20 16:13] VITALS: BP 116/66
[2017-01-20 23:54] VITALS: BP 104/67
[2017-01-21 08:29] VITALS: BP 112/71
[2017-01-21 16:13] VITALS: BP 103/78
[2017-01-22 00:04] VITALS: BP 117/57
[2017-01-22 08:06] VITALS: BP 115/64
[2017-01-22 11:19] VITALS: BP 118/64
[2017-01-22 16:17] VITALS: BP 114/67
[2017-01-22 19:44] VITALS: BP 126/58
[2017-01-22 22:44] LABS: HEMATOCRIT 38.2 % (36.0-46.0); MCH 29.1 PG (29.0-34.0); MCHC 31.7 G/DL (30.0-36.0); MCV 91.8 FL (83-99); MEAN PLAT.VOLUME 8.8 uM^3 (9.5-12.4); PLATELET COUNT 323 K/uL (156-360); RBC DIS.WIDTH-CV 21.7 % (11.8-14.6); RBC DIS.WIDTH-SD 68.8 % (39-53); RED BLOOD COUNT 4.16 M/uL (3.80-5.20); WHITE BLOOD COUNT 25.6 K/uL (4.1-10.2)
[2017-01-22 22:47] LABS: CHLORIDE 99 mEq/L (99-109); POTASSIUM 4.9 mEq/L (3.7-5.4); SODIUM 139 mEq/L (136-147)
[2017-01-22 22:49] LABS: GLUCOSE 130 mg/dL (70-99)
[2017-01-22 22:51] LABS: ANION GAP 11 MEQ/L (2-14); TOTAL BILIRUBIN 0.6 mg/dL (0.0-1.0)
[2017-01-22 22:53] LABS: ALKALINE PHOSPHATASE 263 IU/L (3-129); GFR ESTIMATE (CALCULATED) > 59 mL/min/
[2017-01-22 22:54] LABS: UREA NITROGEN (BUN) 30 mg/dL (9-23)
[2017-01-22 22:55] LABS: DIRECT BILIRUBIN 0.3 mg/dL (0.0-0.3)
[2017-01-22 23:02] LABS: TROP-I INTERPRETATION NEGATIVE; TROPONIN-I < 0.01 ng/mL (0.0-0.30)
[2017-01-23] VITALS (7 sets, daily range): BP systolic 101–132; BP diastolic 62–80
[2017-01-23 08:08] LABS: MCH 28.7 PG (29.0-34.0); MCV 92.4 FL (83-99); MEAN PLAT.VOLUME 8.6 uM^3 (9.5-12.4); PLATELET COUNT 334 K/uL (156-360); RBC DIS.WIDTH-SD 70.2 % (39-53); RED BLOOD COUNT 4.22 M/uL (3.80-5.20); WHITE BLOOD COUNT 25.4 K/uL (4.1-10.2)
[2017-01-23 08:34] LABS: ANION GAP 9 MEQ/L (2-14); CHLORIDE 99 MEQ/L (99-109); GFR ESTIMATE (CALCULATED) > 59 mL/min/; GLUCOSE 112 mg/dL (70-99); POTASSIUM 4.7 MEQ/L (3.7-5.4); SAMPLE HEMOLYSIS CHECK 0; SAMPLE ICTERIC CHECK 0; SAMPLE LIPEMIA CHECK 0; SODIUM 138 MEQ/L (136-147); UREA NITROGEN (BUN) 23 mg/dL (9-23)
[2017-01-23 11:32] LABS: TROP-I INTERPRETATION NEGATIVE; TROPONIN-I < 0.01 ng/mL (0.0-0.30)
[2017-01-23 19:41] LABS: TROP-I INTERPRETATION NEGATIVE; TROPONIN-I < 0.01 ng/mL (0.0-0.30)
[2017-01-24 03:45] VITALS: BP 116/64
[2017-01-24 07:52] VITALS: BP 101/54
[2017-01-24 15:51] VITALS: BP 101/57
[2017-01-24 23:51] VITALS: BP 112/67
[2017-01-25 08:12] VITALS: BP 102/66
[2017-01-25 16:33] VITALS: BP 107/59
[2017-01-25 23:36] VITALS: BP 110/58
[2017-01-26 06:58] LABS: HEMATOCRIT 36.3 % (36.0-46.0); MCH 28.9 PG (29.0-34.0); MCHC 31.4 G/DL (30.0-36.0); MCV 91.9 FL (83-99); MEAN PLAT.VOLUME 8.5 uM^3 (9.5-12.4); PLATELET COUNT 254 K/uL (156-360); RBC DIS.WIDTH-CV 21.9 % (11.8-14.6); RBC DIS.WIDTH-SD 70.5 % (39-53); RED BLOOD COUNT 3.95 M/uL (3.80-5.20); WHITE BLOOD COUNT 23.5 K/uL (4.1-10.2)
[2017-01-26 07:36] LABS: ANION GAP 9 MEQ/L (2-14); CHLORIDE 99 MEQ/L (99-109); GFR ESTIMATE (CALCULATED) > 59 mL/min/; GLUCOSE 95 mg/dL (70-99); POTASSIUM 4.3 MEQ/L (3.7-5.4); SAMPLE HEMOLYSIS CHECK 0; SAMPLE ICTERIC CHECK 0; SAMPLE LIPEMIA CHECK 0; SODIUM 137 MEQ/L (136-147); UREA NITROGEN (BUN) 21 mg/dL (9-23)
[2017-01-26 07:50] VITALS: BP 107/64
[2017-01-26] MEDS ORDERED: DOCUSATE SODIU100 MG PO (14:10)
[2017-01-26] MEDS ORDERED: DIGOXIN125 MCG PO (14:10)
[2017-01-26] MEDS ORDERED: DEXAMETHASONE4 MG PO (14:11)
[2017-01-26 15:22] VITALS: BP 122/74
== END 2017-01-26 16:13 | DRG 54 ==
LOC: EME 12:32 → 3EAST 16:28 → EDOF 16:28 → ENRESERV 16:33 → 3EAST 20:31
PROVIDERS: Emergency Medicine; Hospitalist; Internal Medicine; Internal Medicine Medical Oncology; Nurse Practitioner Adult Health
DX: C79.31 Secondary malignant neoplasm of brain (principal); G93.6 Cerebral edema; C34.32 Malignant neoplasm of lower lobe, left bronchus or lung; F05 Delirium due to known physiological condition; I48.92 Unspecified atrial flutter; R47.01 Aphasia; F31.30 Bipolar disorder, current episode depressed, mild or moderate severity, unspecified; E78.5 Hyperlipidemia, unspecified; F41.1 Generalized anxiety disorder; G89.3 Neoplasm related pain (acute) (chronic); I10 Essential (primary) hypertension; D63.8 Anemia in other chronic diseases classified elsewhere; R47.02 Dysphasia; K20.8 Other esophagitis; G43.909 Migraine, unspecified, not intractable, without status migrainosus; I34.1 Nonrheumatic mitral (valve) prolapse; R00.0 Tachycardia, unspecified; J44.9 Chronic obstructive pulmonary disease, unspecified; K21.9 Gastro-esophageal reflux disease without esophagitis; E04.1 Nontoxic single thyroid nodule; Z60.2 Problems related to living alone; Z88.6 Allergy status to analgesic agent; Z87.442 Personal history of urinary calculi; Z87.891 Personal history of nicotine dependence; Z90.2 Acquired absence of lung [part of]; Z88.5 Allergy status to narcotic agent; Z80.0 Family history of malignant neoplasm of digestive organs; Z83.3 Family history of diabetes mellitus
CPT/HCPCS: 70450; 70553; 71010; 74177; 77300; 77301; 77334; 77338; 77372; 77385; 77386; 80048; 80053; 81003; 82248; 83605; 83880; 84484; 85025; 85027; 85379; 87040; 92507 GN; 92523 GN; 93005; 94640; 96360; 96361; 97530 GO; 97530 GP; 99281; 99285; J1100; J1200; J1644; J2060; J2405; J3010; J7030; J7120; J8540; S0028

== ENCOUNTER 2017-02-10 05:57 | Inpatient (IN) | payer OTHER ==
[~2017-02-10] VITALS: Ht 162.6 cm; Wt 69.2 kg
[2017-02-10] VITALS (10 sets, daily range): BP systolic 89–114; BP diastolic 55–74
[~2017-02-10 05:57] MED LIST changes: +DEXAMETHASONE4 MG PO; -OMEPRAZOLE40 M1 PO
[2017-02-10 07:55] LABS: HEMATOCRIT 35.7 % (36.0-46.0); MCH 29.2 PG (29.0-34.0); MCHC 30.5 G/DL (30.0-36.0); MCV 95.7 FL (83-99); MEAN PLAT.VOLUME 8.9 uM^3 (9.5-12.4); NRBC (%) 0.3 /100 WBC (0-0); PLATELET COUNT 189 K/uL (156-360); RBC DIS.WIDTH-CV 22.7 % (11.8-14.6); RBC DIS.WIDTH-SD 78.4 % (39-53); RED BLOOD COUNT 3.73 M/uL (3.80-5.20); WHITE BLOOD COUNT 16.4 K/uL (4.1-10.2)
[2017-02-10 08:07] LABS: CHLORIDE 105 mEq/L (99-109); POTASSIUM 3.9 mEq/L (3.7-5.4); SODIUM 139 mEq/L (136-147)
[2017-02-10 08:10] LABS: GLUCOSE 85 mg/dL (70-99)
[2017-02-10 08:11] LABS: ANION GAP 8 MEQ/L (2-14); TOTAL BILIRUBIN 0.6 mg/dL (0.0-1.0)
[2017-02-10 08:13] LABS: ALKALINE PHOSPHATASE 188 IU/L (3-129); GFR ESTIMATE (CALCULATED) > 59 mL/min/
[2017-02-10 08:14] LABS: UREA NITROGEN (BUN) 18 mg/dL (9-23)
[2017-02-10 08:17] LABS: TROP-I INTERPRETATION NEGATIVE; TROPONIN-I 0.04 ng/mL (0.0-0.30)
[2017-02-10 08:56] LABS: ANISOCYTOSIS 2+; BAND NEUTROPHILS 13.9 % (0-8.0); EOSINOPHIL ABS CT 0; HYPOCHROMASIA 1+; INSTRUMENT ABS NEUTROPHIL CT 13.6 K/uL; LYMPHOCYTES 3.5 % (15.0-45.0); MACROCYTES 1+; METAMYELOCYTES 0.9 %; MICROCYTOSIS 1+; MYELOCYTES 1.7 %; PLAT.SUFFICIENCY ADEQUATE; POLYCHROMASIA 1+; SEG.NEUTROPHILS 77.4 % (46.0-76.0); TOXIC GRANULATION 1+
[2017-02-10 14:40] LABS: TROP-I INTERPRETATION NEGATIVE; TROPONIN-I 0.02 ng/mL (0.0-0.30)
[2017-02-10] MEDS ORDERED: ATORVASTATIN CA20 MG PO (14:52)
[2017-02-10] MEDS ORDERED: VERAPAMIL HCL180 MG PO (16:14)
[2017-02-10] MEDS ORDERED: OMEPRAZOLE20 MG PO (16:14)
[2017-02-10 16:43] LABS: ADD MIUA? NO; BILIRUBIN NEGATIVE; BLOOD NEGATIVE; COLOR YELLOW ((YELLOW)); GLUCOSE (STRIP) NEGATIVE; KETONES NEGATIVE; LEUKOCYTES NEGATIVE; NITRITE NEGATIVE; PROTEIN (STRIP) NEGATIVE; SPECIFIC GRAVITY 1.018 (1.000-1.030); UROBILINOGEN 0.2 MG/DL (0.2-1.0)
[2017-02-10 17:01] LABS: METH RESISTANT S AUREUS PCR POSITIVE (NEGATIVE)
[2017-02-10 17:02] LABS: PROBE CHECK PASS
[2017-02-10 20:22] LABS: TROP-I INTERPRETATION NEGATIVE; TROPONIN-I 0.02 ng/mL (0.0-0.30)
[2017-02-11] VITALS (14 sets, daily range): BP systolic 101–115; BP diastolic 61–82
[2017-02-11 05:59] LABS: HEMATOCRIT 32.4 % (36.0-46.0); MCHC 31.8 G/DL (30.0-36.0); MCV 97.6 FL (83-99); MEAN PLAT.VOLUME 9.1 uM^3 (9.5-12.4); PLATELET COUNT 177 K/uL (156-360); RED BLOOD COUNT 3.32 M/uL (3.80-5.20); WHITE BLOOD COUNT 18.8 K/uL (4.1-10.2)
[2017-02-11 07:57] LABS: ANION GAP 8 MEQ/L (2-14); CHLORIDE 106 MEQ/L (99-109); GFR ESTIMATE (CALCULATED) > 59 mL/min/; POTASSIUM 3.5 MEQ/L (3.7-5.4); SAMPLE HEMOLYSIS CHECK 0; SAMPLE ICTERIC CHECK 0; SAMPLE LIPEMIA CHECK 0; SODIUM 142 MEQ/L (136-147); UREA NITROGEN (BUN) 22 mg/dL (9-23)
[2017-02-11 07:59] LABS: GLUCOSE 179 mg/dL (70-99)
[2017-02-11] MEDS ORDERED: DEXAMETHASONE4 MG PO (09:57)
[2017-02-12] VITALS (8 sets, daily range): BP systolic 93–122; BP diastolic 55–74
[2017-02-12 05:52] LABS: HEMATOCRIT 34.7 % (36.0-46.0); MCH 30.7 PG (29.0-34.0); MCHC 31.7 G/DL (30.0-36.0); MCV 96.9 FL (83-99); MEAN PLAT.VOLUME 9.2 uM^3 (9.5-12.4); NRBC (%) 0.2 /100 WBC (0-0); PLATELET COUNT 218 K/uL (156-360); RBC DIS.WIDTH-CV 22.5 % (11.8-14.6); RED BLOOD COUNT 3.58 M/uL (3.80-5.20); WHITE BLOOD COUNT 20.2 K/uL (4.1-10.2)
[2017-02-12 06:23] LABS: ANION GAP 7 MEQ/L (2-14); CHLORIDE 105 MEQ/L (99-109); GFR ESTIMATE (CALCULATED) > 59 mL/min/; POTASSIUM 4.2 MEQ/L (3.7-5.4); SAMPLE HEMOLYSIS CHECK 0; SAMPLE ICTERIC CHECK 0; SAMPLE LIPEMIA CHECK 0; SODIUM 140 MEQ/L (136-147); UREA NITROGEN (BUN) 28 mg/dL (9-23)
[2017-02-12 06:25] LABS: GLUCOSE 109 mg/dL (70-99)
[2017-02-13 03:56] VITALS: BP 108/67
[2017-02-13 04:42] LABS: HEMATOCRIT 34.9 % (36.0-46.0); MCH 29.5 PG (29.0-34.0); MCHC 30.9 G/DL (30.0-36.0); MCV 95.4 FL (83-99); MEAN PLAT.VOLUME 8.9 uM^3 (9.5-12.4); NRBC (%) 0.3 /100 WBC (0-0); PLATELET COUNT 213 K/uL (156-360); RBC DIS.WIDTH-CV 22.2 % (11.8-14.6); RED BLOOD COUNT 3.66 M/uL (3.80-5.20); WHITE BLOOD COUNT 16.7 K/uL (4.1-10.2)
[2017-02-13 08:00] VITALS: BP 98/62
[2017-02-13 12:00] VITALS: BP 83/53
[2017-02-13 15:37] VITALS: BP 96/58
[2017-02-13 17:36] VITALS: BP 109/71
[2017-02-13 20:10] VITALS: BP 103/64
[2017-02-14 00:09] VITALS: BP 90/68
[2017-02-14 04:33] VITALS: BP 97/61
[2017-02-14 05:37] LABS: HEMATOCRIT 33.1 % (36.0-46.0); MCH 29.3 PG (29.0-34.0); MCHC 30.5 G/DL (30.0-36.0); MCV 95.9 FL (83-99); MEAN PLAT.VOLUME 9.1 uM^3 (9.5-12.4); NRBC (%) 0.7 /100 WBC (0-0); PLATELET COUNT 219 K/uL (156-360); RBC DIS.WIDTH-CV 22.3 % (11.8-14.6); RED BLOOD COUNT 3.45 M/uL (3.80-5.20); WHITE BLOOD COUNT 17.2 K/uL (4.1-10.2)
[2017-02-14 06:14] LABS: ANION GAP 6 MEQ/L (2-14); CHLORIDE 103 MEQ/L (99-109); GFR ESTIMATE (CALCULATED) > 59 mL/min/; GLUCOSE 88 mg/dL (70-99); POTASSIUM 3.8 MEQ/L (3.7-5.4); SAMPLE HEMOLYSIS CHECK 0; SAMPLE ICTERIC CHECK 0; SAMPLE LIPEMIA CHECK 0; SODIUM 139 MEQ/L (136-147); UREA NITROGEN (BUN) 27 mg/dL (9-23)
[2017-02-14 07:54] VITALS: BP 92/64
[2017-02-14 12:00] VITALS: BP 96/62
[2017-02-14 20:13] VITALS: BP 102/62
[2017-02-14 23:18] VITALS: BP 93/62
[2017-02-15] VITALS (8 sets, daily range): BP systolic 85–105; BP diastolic 57–69
[2017-02-16] VITALS (7 sets, daily range): BP systolic 87–110; BP diastolic 58–78
[2017-02-17 06:45] LABS: MCH 29.3 PG (29.0-34.0); MCHC 30.3 G/DL (30.0-36.0); MCV 96.7 FL (83-99); MEAN PLAT.VOLUME 9.1 uM^3 (9.5-12.4); NRBC (%) 0.4 /100 WBC (0-0); PLATELET COUNT 221 K/uL (156-360); RBC DIS.WIDTH-SD 76.2 % (39-53); RED BLOOD COUNT 3.31 M/uL (3.80-5.20); WHITE BLOOD COUNT 25.3 K/uL (4.1-10.2)
[2017-02-17 07:08] LABS: ANION GAP 7 MEQ/L (2-14); CHLORIDE 99 MEQ/L (99-109); GFR ESTIMATE (CALCULATED) > 59 mL/min/; GLUCOSE 91 mg/dL (70-99); POTASSIUM 4.2 MEQ/L (3.7-5.4); SAMPLE HEMOLYSIS CHECK 0; SAMPLE ICTERIC CHECK 0; SAMPLE LIPEMIA CHECK 0; SODIUM 135 MEQ/L (136-147); UREA NITROGEN (BUN) 22 mg/dL (9-23)
[2017-02-17 07:46] VITALS: BP 91/57
[2017-02-17 16:56] VITALS: BP 92/60
[2017-02-18 00:19] VITALS: BP 98/54
[2017-02-18 06:24] LABS: HEMATOCRIT 30.9 % (36.0-46.0); MCH 29.5 PG (29.0-34.0); MCHC 30.1 G/DL (30.0-36.0); MCV 98.1 FL (83-99); NRBC (%) 1.8 /100 WBC (0-0); PLATELET COUNT 232 K/uL (156-360); RBC DIS.WIDTH-CV 22.5 % (11.8-14.6); RBC DIS.WIDTH-SD 77.8 % (39-53); RED BLOOD COUNT 3.15 M/uL (3.80-5.20); WHITE BLOOD COUNT 23.2 K/uL (4.1-10.2)
[2017-02-18 06:46] LABS: ANION GAP 7 MEQ/L (2-14); CHLORIDE 99 MEQ/L (99-109); GFR ESTIMATE (CALCULATED) > 59 mL/min/; GLUCOSE 93 mg/dL (70-99); POTASSIUM 4.1 MEQ/L (3.7-5.4); SAMPLE HEMOLYSIS CHECK 0; SAMPLE ICTERIC CHECK 0; SAMPLE LIPEMIA CHECK 0; SODIUM 138 MEQ/L (136-147); UREA NITROGEN (BUN) 24 mg/dL (9-23)
[2017-02-18 09:25] VITALS: BP 89/55
[2017-02-18 11:50] VITALS: BP 89/54
[2017-02-18] MEDS ORDERED: LOPRESSOR25 MG PO (15:31)
[2017-02-18] MEDS ORDERED: MIDODRINE HCL5 MG PO (15:31)
[2017-02-18] MEDS ORDERED: DEXAMETHASONE4 MG PO (15:34)
[2017-02-18] MEDS ORDERED: FUROSEMIDE20 MG PO (15:34)
[2017-02-18] MEDS ORDERED: ADVAIR HFA120 INHALA IH (15:34)
[2017-02-18 16:39] VITALS: BP 96/55
== END 2017-02-18 19:05 | disposition home health service (06) | DRG 180 ==
LOC: EME → EDBD 05:57 → EME 05:57 → 4WEST 11:46 → EDOF 11:46 → 4EAST 11:46 → CANRESERV 11:52 → ENRESERV 11:52 → CANRESERV 12:36 → ENRESERV 12:36 → CANRESERV 13:04 → ENRESERV 13:04 → CANRESERV 13:19 → EDOF 13:30 → ENRESERV 14:39 → 4WEST 15:23 → ENRESERV 02-11 23:55 → 4EAST 02-12 01:40 → ENRESERV 02-16 12:37 → 5EAST 02-16 16:48
PROVIDERS: Emergency Medicine; Family Medicine; Hospitalist; Internal Medicine; Internal Medicine Critical Care Medicine
PROC: DBY27ZZ Contact Radiation of Lung (ICD-10-PCS; principal; 2017-02-14)
DX: C34.90 Malignant neoplasm of unspecified part of unspecified bronchus or lung (principal); R47.01 Aphasia; S81.801A Unspecified open wound, right lower leg, initial encounter; C79.31 Secondary malignant neoplasm of brain; J94.2 Hemothorax; F41.9 Anxiety disorder, unspecified; F31.9 Bipolar disorder, unspecified; I10 Essential (primary) hypertension; G89.3 Neoplasm related pain (acute) (chronic); G93.9 Disorder of brain, unspecified; J44.9 Chronic obstructive pulmonary disease, unspecified; E04.1 Nontoxic single thyroid nodule; I48.0 Paroxysmal atrial fibrillation; I05.8 Other rheumatic mitral valve diseases; E78.5 Hyperlipidemia, unspecified; G93.6 Cerebral edema; T38.0X5A Adverse effect of glucocorticoids and synthetic analogues, initial encounter; D64.9 Anemia, unspecified; K21.9 Gastro-esophageal reflux disease without esophagitis; Z80.0 Family history of malignant neoplasm of digestive organs; Z90.2 Acquired absence of lung [part of]; R09.02 Hypoxemia; D72.825 Bandemia; Z92.3 Personal history of irradiation; Z72.0 Tobacco use; Z79.899 Other long term (current) drug therapy; Z92.21 Personal history of antineoplastic chemotherapy; Z87.442 Personal history of urinary calculi; Z85.841 Personal history of malignant neoplasm of brain; Z85.118 Personal history of other malignant neoplasm of bronchus and lung; Z66 Do not resuscitate
CPT/HCPCS: 71010; 71275; 77300; 77301; 77334; 77338; 77385; 80048; 80053; 80162; 81003; 83605; 84484; 85025; 85027; 86850; 86900; 86901; 87040; 87641; 93005; 93306; 94640; 94640 76; 99202; 99281; 99285; A6212; J1650; J2405; J2543; J2930; J7030; J7040; J7050; J8540

== ENCOUNTER 2017-02-28 13:13 | Inpatient (IN) | payer OTHER ==
[~2017-02-28] VITALS: Ht 162.6 cm; Wt 65.4 kg
[~2017-02-28 13:13] MED LIST changes: +ATORVASTATIN CA20 MG PO; +FUROSEMIDE20 MG PO; +MIDODRINE HCL5 MG PO; +OMEPRAZOLE20 MG PO; +VERAPAMIL HCL180 MG PO
[2017-02-28 14:16] LABS: MEAN PLAT.VOLUME 9.5 uM^3 (9.5-12.4); PLATELET COUNT 240 K/uL (156-360)
[2017-02-28 14:19] LABS: HEMATOCRIT 32.7 % (36.0-46.0); MCH 30.5 PG (29.0-34.0); MCHC 30.9 G/DL (30.0-36.0); MCV 98.8 FL (83-99); NRBC (%) 1.3 /100 WBC (0-0); RBC DIS.WIDTH-CV 19.9 % (11.8-14.6); RBC DIS.WIDTH-SD 70.9 % (39-53); RED BLOOD COUNT 3.31 M/uL (3.80-5.20)
[2017-02-28 14:20] LABS: WHITE BLOOD COUNT 41.4 K/uL (4.1-10.2)
[2017-02-28 14:25] LABS: CHLORIDE 102 mEq/L (99-109); POTASSIUM 3.9 mEq/L (3.7-5.4); SODIUM 140 mEq/L (136-147)
[2017-02-28 14:26] LABS: GLUCOSE 155 mg/dL (70-99)
[2017-02-28 14:28] LABS: ANION GAP 13 MEQ/L (2-14)
[2017-02-28 14:30] LABS: GFR ESTIMATE (CALCULATED) > 59 mL/min/
[2017-02-28 14:31] LABS: UREA NITROGEN (BUN) 27 mg/dL (9-23)
[2017-02-28 14:51] LABS: TROP-I INTERPRETATION NEGATIVE; TROPONIN-I 0.03 ng/mL (0.0-0.30)
[2017-02-28 15:42] LABS: ADD MIUA? YES; BILIRUBIN NEGATIVE; BLOOD NEGATIVE; COLOR AMBER ((YELLOW)); GLUCOSE (STRIP) NEGATIVE; KETONES NEGATIVE; LEUKOCYTES NEGATIVE; NITRITE NEGATIVE; PROTEIN (STRIP) NEGATIVE; SPECIFIC GRAVITY 1.021 (1.000-1.030)
[2017-02-28 15:47] LABS: BACTERIA RARE /HPF; EPITHELIAL CELLS RARE /HPF; HYALINE CASTS 40-50 /LPF; MUCUS 1+ /LPF; RED BLOOD CELLS 0-5 /HPF (0-5); UCUL ADDED? NO; WHITE BLOOD CELLS 0-5 /HPF (0-5)
[2017-02-28 16:37] LABS: INTER. NORMALIZED RATIO 1.6; PROTHROMBIN TIME 17.6 SEC (10.2-12.9)
[2017-02-28 16:39] LABS: PTT 28.2 SEC (25-37)
[2017-02-28 17:22] LABS: TOTAL BILIRUBIN 0.7 mg/dL (0.0-1.0)
[2017-02-28 17:23] LABS: ALKALINE PHOSPHATASE 296 IU/L (3-129)
[2017-02-28 17:26] LABS: DIRECT BILIRUBIN 0.4 mg/dL (0.0-0.3)
[2017-02-28 20:22] LABS: TROP-I INTERPRETATION NEGATIVE; TROPONIN-I 0.03 ng/mL (0.0-0.30)
[2017-02-28 23:15] VITALS: BP 104/63
[2017-03-01 03:14] LABS: TROP-I INTERPRETATION NEGATIVE; TROPONIN-I 0.03 ng/mL (0.0-0.30)
[2017-03-01 05:00] VITALS: BP 96/67
[2017-03-01 07:32] LABS: MEAN PLAT.VOLUME 9.6 uM^3 (9.5-12.4); PLATELET COUNT 211 K/uL (156-360)
[2017-03-01 07:39] LABS: HEMATOCRIT 30.9 % (36.0-46.0); MCH 30.5 PG (29.0-34.0); MCHC 30.1 G/DL (30.0-36.0); MCV 101.3 FL (83-99); NRBC (%) 0.9 /100 WBC (0-0); RBC DIS.WIDTH-CV 20.2 % (11.8-14.6); RBC DIS.WIDTH-SD 74.4 % (39-53); RED BLOOD COUNT 3.05 M/uL (3.80-5.20)
[2017-03-01 07:41] LABS: INTER. NORMALIZED RATIO 1.2; PROTHROMBIN TIME 13.8 SEC (10.2-12.9); WHITE BLOOD COUNT 34.4 K/uL (4.1-10.2)
[2017-03-01 07:44] LABS: PTT 43.9 SEC (25-37)
[2017-03-01 07:58] LABS: ANION GAP 9 MEQ/L (2-14); CHLORIDE 107 MEQ/L (99-109); GFR ESTIMATE (CALCULATED) > 59 mL/min/; GLUCOSE 120 mg/dL (70-99); POTASSIUM 3.8 MEQ/L (3.7-5.4); SAMPLE HEMOLYSIS CHECK 0; SAMPLE ICTERIC CHECK 0; SAMPLE LIPEMIA CHECK 0; SODIUM 143 MEQ/L (136-147); UREA NITROGEN (BUN) 21 mg/dL (9-23)
[2017-03-01 09:30] VITALS: BP 98/62
[2017-03-01 12:40] VITALS: BP 105/67
[2017-03-01 16:04] VITALS: BP 101/61
[2017-03-01 20:28] VITALS: BP 116/71
[2017-03-02] VITALS (8 sets, daily range): BP systolic 92–111; BP diastolic 55–78
[2017-03-02 04:32] LABS: HEMATOCRIT 32.8 % (36.0-46.0); MCH 31.1 PG (29.0-34.0); MCHC 30.5 G/DL (30.0-36.0); MCV 101.9 FL (83-99); MEAN PLAT.VOLUME 9.9 uM^3 (9.5-12.4); NRBC (%) 1.3 /100 WBC (0-0); PLATELET COUNT 225 K/uL (156-360); RBC DIS.WIDTH-CV 20.5 % (11.8-14.6); RBC DIS.WIDTH-SD 74.6 % (39-53); RED BLOOD COUNT 3.22 M/uL (3.80-5.20); WHITE BLOOD COUNT 29.5 K/uL (4.1-10.2)
[2017-03-02 04:48] LABS: CHLORIDE 108 mEq/L (99-109); POTASSIUM 3.6 mEq/L (3.7-5.4); SODIUM 142 mEq/L (136-147)
[2017-03-02 04:49] LABS: MAGNESIUM 1.6 mg/dL (1.3-2.7)
[2017-03-02 04:51] LABS: GLUCOSE 123 mg/dL (70-99)
[2017-03-02 04:54] LABS: GFR ESTIMATE (CALCULATED) > 59 mL/min/
[2017-03-02 04:55] LABS: UREA NITROGEN (BUN) 21 mg/dL (9-23)
[2017-03-02 05:09] LABS: ANION GAP 10 MEQ/L (2-14)
[2017-03-02 05:11] LABS: ALKALINE PHOSPHATASE 356 IU/L (3-129)
[2017-03-02 05:12] LABS: TOTAL BILIRUBIN 0.4 mg/dL (0.0-1.0)
[2017-03-02 05:52] LABS: BASOPHIL COUNT 0.1 K/uL (0-0.1); EOSINOPHIL (%) 0 % (0-5); IMMATURE GRANULOCYTE (%) 3.7 % (0.0-0.7); IMMATURE GRANULOCYTE COUNT 1.1 K/uL; INSTRUMENT ABS NEUTROPHIL CT 26.4 K/uL; LYMPHOCYTE COUNT 0.6 K/uL (1.0-2.8); MONOCYTE (%) 4.6 % (3-12); MONOCYTE COUNT 1.4 K/uL (0-0.8); NEUTROPHIL (%) 89.5 % (45-76); NEUTROPHIL COUNT 26.4 K/uL (1.8-6.4)
[2017-03-02] MEDS ORDERED: SPIRIVA RESPIMAT4 GM IH (10:03)
[2017-03-02] MEDS ORDERED: MULTIVITAMIN1 EAC2 PO (10:07)
[2017-03-03 03:39] VITALS: BP 101/55
[2017-03-03 07:43] LABS: HEMATOCRIT 31.8 % (36.0-46.0); MCH 31.2 PG (29.0-34.0); MCHC 30.2 G/DL (30.0-36.0); MCV 103.2 FL (83-99); MEAN PLAT.VOLUME 10.1 uM^3 (9.5-12.4); NRBC (%) 3.2 /100 WBC (0-0); PLATELET COUNT 209 K/uL (156-360); RBC DIS.WIDTH-CV 20.7 % (11.8-14.6); RBC DIS.WIDTH-SD 76.3 % (39-53); RED BLOOD COUNT 3.08 M/uL (3.80-5.20); WHITE BLOOD COUNT 21.8 K/uL (4.1-10.2)
[2017-03-03 08:13] LABS: ANISOCYTOSIS 1+; ATYPICAL LYMPHOCYTE 0.4 %; BAND NEUTROPHILS 9.3 % (0-8.0); BASOPHILS 2.2 %; EOSINOPHIL ABS CT 0; INSTRUMENT ABS NEUTROPHIL CT 18.7 K/uL; LYMPHOCYTES 3.1 % (15.0-45.0); MACROCYTES 1+; METAMYELOCYTES 1.8 %; MYELOCYTES 0.4 %; NUCLEATED RBC'S 5.8; PLAT.SUFFICIENCY ADEQUATE; POLYCHROMASIA 2+; SEG.NEUTROPHILS 77.9 % (46.0-76.0); TOX.VACUOLIZATION 2+; TOXIC GRANULATION 2+
[2017-03-03 08:14] LABS: ANION GAP 10 MEQ/L (2-14); CHLORIDE 107 MEQ/L (99-109); GFR ESTIMATE (CALCULATED) > 59 mL/min/; GLUCOSE 93 mg/dL (70-99); POTASSIUM 4.3 MEQ/L (3.7-5.4); SAMPLE HEMOLYSIS CHECK 1; SAMPLE ICTERIC CHECK 0; SAMPLE LIPEMIA CHECK 0; SODIUM 141 MEQ/L (136-147); UREA NITROGEN (BUN) 20 mg/dL (9-23)
[2017-03-03] MEDS ORDERED: DECADRON1 MG PO (08:50)
[2017-03-03] MEDS ORDERED: ELIQUIS5 MG PO (08:50)
[2017-03-03 09:07] VITALS: BP 97/62
[2017-03-03 12:05] VITALS: BP 99/61
== END 2017-03-03 14:24 | disposition home health service (06) | DRG 176 ==
LOC: EME 13:13 → EDOF 17:21 → 4EAST 17:21 → ENRESERV 17:22 → 4EAST 23:00 → ENRESERV 03-02 08:45 → 2EAST 03-02 13:48
PROVIDERS: Emergency Medicine; Internal Medicine
DX: I26.99 Other pulmonary embolism without acute cor pulmonale (principal); C34.32 Malignant neoplasm of lower lobe, left bronchus or lung; C79.31 Secondary malignant neoplasm of brain; I95.89 Other hypotension; E87.2 Acidosis; D72.829 Elevated white blood cell count, unspecified; T38.0X5A Adverse effect of glucocorticoids and synthetic analogues, initial encounter; I48.91 Unspecified atrial fibrillation; I48.92 Unspecified atrial flutter; I11.0 Hypertensive heart disease with heart failure; I50.9 Heart failure, unspecified; J44.9 Chronic obstructive pulmonary disease, unspecified; Z66 Do not resuscitate; E78.5 Hyperlipidemia, unspecified; I34.1 Nonrheumatic mitral (valve) prolapse; E04.2 Nontoxic multinodular goiter; K21.9 Gastro-esophageal reflux disease without esophagitis; F41.9 Anxiety disorder, unspecified; F31.9 Bipolar disorder, unspecified; Z87.891 Personal history of nicotine dependence; Z90.2 Acquired absence of lung [part of]; Z79.899 Other long term (current) drug therapy; Z80.0 Family history of malignant neoplasm of digestive organs
CPT/HCPCS: 71020; 71275; 77336; 77385; 77386; 80048; 80053; 80076; 80202; 81003; 83605; 83735; 83880; 84484; 85025; 85027; 85610; 85730; 87040; 90686; 93005; 94640; 94640 76; 99202; 99281; 99285; J0692; J3370; J7030; J7050; J8540

== ENCOUNTER 2017-03-11 10:18 | Inpatient (IN) | payer OTHER ==
[~2017-03-11] VITALS: Ht 162.6 cm; Wt 59.2 kg
[~2017-03-11 10:18] MED LIST changes: +DECADRON1 MG PO; +ELIQUIS5 MG PO; +MULTIVITAMIN1 EAC2 PO
[2017-03-11 12:20] LABS: CHLORIDE 100 mEq/L (99-109); POTASSIUM 5.6 mEq/L (3.7-5.4); SODIUM 134 mEq/L (136-147)
[2017-03-11 12:22] LABS: GLUCOSE 84 mg/dL (70-99)
[2017-03-11 12:23] LABS: ANION GAP 15 MEQ/L (2-14)
[2017-03-11 12:26] LABS: GFR ESTIMATE (CALCULATED) > 59 mL/min/
[2017-03-11 12:27] LABS: UREA NITROGEN (BUN) 23 mg/dL (9-23)
[2017-03-11 12:34] LABS: DIGOXIN 0.5 ng/mL (0.8-2.0)
[2017-03-11 12:37] LABS: HEMATOCRIT 41.7 % (36.0-46.0); MCH 30.5 PG (29.0-34.0); MCV 101.7 FL (83-99); MEAN PLAT.VOLUME 10.5 uM^3 (9.5-12.4); NRBC (%) 1.5 /100 WBC (0-0); PLATELET COUNT 215 K/uL (156-360); RBC DIS.WIDTH-CV 18.4 % (11.8-14.6); RBC DIS.WIDTH-SD 65.1 % (39-53); WHITE BLOOD COUNT 33.5 K/uL (4.1-10.2)
[2017-03-11 13:03] LABS: TROP-I INTERPRETATION NEGATIVE; TROPONIN-I < 0.01 ng/mL (0.0-0.30)
[2017-03-11 19:00] LABS: ADD MIUA? NO; BILIRUBIN NEGATIVE; BLOOD NEGATIVE; COLOR YELLOW ((YELLOW)); GLUCOSE (STRIP) NEGATIVE; KETONES NEGATIVE; LEUKOCYTES NEGATIVE; NITRITE NEGATIVE; PROTEIN (STRIP) NEGATIVE; SPECIFIC GRAVITY 1.017 (1.000-1.030)
[2017-03-11 19:57] VITALS: BP 96/62
[2017-03-11 20:00] VITALS: BP 107/61
[2017-03-11 20:47] VITALS: BP 107/61
[2017-03-11 21:00] VITALS: BP 99/78
[2017-03-11 22:00] VITALS: BP 92/62
[2017-03-11 22:36] LABS: METH RESISTANT S AUREUS PCR POSITIVE (NEGATIVE)
[2017-03-11 22:42] LABS: PROBE CHECK PASS
[2017-03-11 23:00] VITALS: BP 106/64
[2017-03-12] VITALS: BP 92/58
[2017-03-16 14:34] LABS: GFR ESTIMATE (CALCULATED) > 59 mL/min/; UREA NITROGEN (BUN) 20 mg/dL (9-23)
[2017-03-16 23:54] VITALS: BP 114/67
== END 2017-03-19 13:27 | DRG 871 ==
LOC: EME 10:18 → 5EAST 16:02 → EDOF 16:02 → 4WEST 16:02 → ENRESERV 16:09 → CANRESERV 16:09 → EDOF 17:03 → ENRESERV 17:04 → 4WEST 17:11 → EDOF 17:17 → ENRESERV 17:18 → 4WEST 19:58 → ENRESERV 21:39 → 4WEST 22:04 → ENRESERV 03-12 01:31 → 5EAST 03-12 02:24
PROVIDERS: Emergency Medicine; Hospitalist; Specialist
DX: A41.9 Sepsis, unspecified organism (principal); L97.319 Non-pressure chronic ulcer of right ankle with unspecified severity; L03.115 Cellulitis of right lower limb; L03.116 Cellulitis of left lower limb; R65.20 Severe sepsis without septic shock; E87.2 Acidosis; E87.5 Hyperkalemia; I26.99 Other pulmonary embolism without acute cor pulmonale; C78.02 Secondary malignant neoplasm of left lung; C79.31 Secondary malignant neoplasm of brain; I11.0 Hypertensive heart disease with heart failure; I50.810 Right heart failure, unspecified; I48.0 Paroxysmal atrial fibrillation; Z51.5 Encounter for palliative care; Z66 Do not resuscitate; B95.62 Methicillin resistant Staphylococcus aureus infection as the cause of diseases classified elsewhere; E86.0 Dehydration; R41.82 Altered mental status, unspecified; R62.7 Adult failure to thrive; L73.9 Follicular disorder, unspecified; G89.3 Neoplasm related pain (acute) (chronic); J44.9 Chronic obstructive pulmonary disease, unspecified; K21.9 Gastro-esophageal reflux disease without esophagitis; F32.9 Major depressive disorder, single episode, unspecified; F41.9 Anxiety disorder, unspecified; G43.909 Migraine, unspecified, not intractable, without status migrainosus; Z92.3 Personal history of irradiation; Z92.21 Personal history of antineoplastic chemotherapy; Z85.118 Personal history of other malignant neoplasm of bronchus and lung; Z90.2 Acquired absence of lung [part of]; Z86.14 Personal history of Methicillin resistant Staphylococcus aureus infection; Z79.01 Long term (current) use of anticoagulants; Z87.442 Personal history of urinary calculi; Z87.891 Personal history of nicotine dependence; Z80.0 Family history of malignant neoplasm of digestive organs
CPT/HCPCS: 36415; 71020; 73700; 80048; 80053; 80162; 80202; 81003; 82565; 83605; 84484; 84520; 85025; 85027; 87040; 87070; 87075; 87086; 87205; 87641; 93005; 99281; 99285; J2060; J2543; J3010; J3370; J7042; J7050

== ENCOUNTER 2017-03-19 13:13 | Inpatient (IN) | payer OTHER | END 2017-03-20 00:22 | DRG 180 | LOC: 5EAST 13:13 → ENRESERV 13:14 → 5EAST 13:31 | DX: C34.90 Malignant neoplasm of unspecified part of unspecified bronchus or lung (principal); A41.9 Sepsis, unspecified organism; L03.119 Cellulitis of unspecified part of limb; Z51.5 Encounter for palliative care; Z66 Do not resuscitate; I10 Essential (primary) hypertension; J44.9 Chronic obstructive pulmonary disease, unspecified; K21.9 Gastro-esophageal reflux disease without esophagitis; F31.9 Bipolar disorder, unspecified ==